=== PATIENT | male | born 1960 | race African-American/Black ===

== ENCOUNTER 2016-12-31 21:12 | Inpatient (IN) | payer BC, OTHER ==
[2016-12-31 21:23] VITALS: BMI 28.1
--- NOTE | 2016-12-31 21:36 | PDOC ---
History of Present Illness - General History Source: Patient Exam Limitations: No Limitations - History of Present Illness Initial Comments: 12/31/16 21:47 The patient is a 56 year old male, with a significant past medical history of HTN, diabetes, s/p kidney transplant and former dyalysis patient (left arm shunt ), who presents to the emergency department with right hand swelling for the past 2 weeks. He states that 2 weeks ago he burned his hand and followed up with his PMD for evaluation but ever since the follow up his hand has been swelling. He was placed on antibiotics at the time. He reports mild pain from the hand, without radiation or modifying factors. The patient denies chest pain, shortness of breath, headache and dizziness. Denies fever, chills, nausea, vomit, diarrhea and constipation. Allergies: Levanox Past surgical history: Kidney transplant (06/[address] [place] [address] Allen) , left arm fistula Social history: Alcohol use. No tobacco or drug use reported PMD - Dr. Charles Rogers <Amandeep Lunsford - Last Filed: 12/31/16 21:47> <Leslye Huitron - Last Filed: 01/01/17 06:32> - General Chief Complaint: Wound Stated Complaint: BURN-REF BY DOCTOR Time Seen by Provider: 12/31/16 21:36 Past History <Amandeep Lunsford - Last Filed: 12/31/16 21:47> - Past Medical History Diabetes: Yes Dialysis: Yes (Shunt lt arm) HIV: Yes - Psycho/Social/Smoking Cessation Hx Anxiety: No Suicidal Ideation: No Smoking History: Never smoked Have you smoked in the past 12 months: No Information on smoking cessation initiated: No Hx Alcohol Use: Yes Drug/Substance Use Hx: No Substance Use Type: None <Leslye Huitron - Last Filed: 01/01/17 06:32> - Past Medical History Allergies/Adverse Reactions: Allergies Allergy/AdvReac Type Severity Reaction Status Date / Time enoxaparin sodium Allergy Severe Hives Verified 12/31/16 21:42 [From Lovenox] garlic AdvReac Verified 12/31/16 21:42 Home Medications: Ambulatory Orders Amlodipine Besylate [Norvasc -] 10 mg PO DAILY 12/31/16 Amoxicillin - [Amoxicillin 500mg Capsule -] 500 mg PO BID 12/31/16 Aspirin [ASA -] 81 mg PO DAILY 12/31/16 Cinacalcet HCl [Sensipar] 30 mg PO DAILY 12/31/16 Furosemide [Lasix] 40 mg PO DAILY 12/31/16 Losartan Potassium [Cozaar -] 25 mg PO DAILY 12/31/16 Metoprolol Tartrate [Lopressor] 100 mg PO BID 12/31/16 Rosuvastatin Calcium [Crestor] 10 mg PO HS 12/31/16 Tacrolimus [Prograf] 5 mg PO BID 12/31/16 Tamsulosin HCl [Flomax] 0.4 mg PO DAILY 12/31/16 Clindamycin [Cleocin -] 300 mg PO Q6HPO #40 capsule 01/01/17 Review of Systems - Review of Systems Able to Perform ROS?: Yes Comments:: 12/31/16 21:49 GENERAL/CONSTITUTIONAL: No fever or chills. No weakness. HEAD, EYES, EARS, NOSE AND THROAT: No change in vision. No ear pain or discharge. No sore throat. CARDIOVASCULAR: No chest pain or shortness of breath RESPIRATORY: No cough, wheezing, or hemoptysis. GASTROINTESTINAL: No nausea, vomiting, diarrhea or constipation. GENITOURINARY: No dysuria, frequency, or change in urination. EXTREMITIES: (+) Right hand swelling. MUSCULOSKELETAL: No joint or muscle swelling or pain. No neck or back pain. SKIN: No rash NEUROLOGIC: No headache, vertigo, loss of consciousness, or change in strength/ sensation. ENDOCRINE: No increased thirst. No abnormal weight change HEMATOLOGIC/LYMPHATIC: No anemia, easy bleeding, or history of blood clots. ALLERGIC/IMMUNOLOGIC: No hives or skin allergy. <Amandeep Lunsford - Last Filed: 12/31/16 21:47> *Physical Exam - Vital Signs Last Vital Signs Temp Pulse Resp BP Pulse Ox 98.5 F 77 18 163/96 100 12/31/16 21:16 12/31/16 21:16 12/31/16 21:16 12/31/16 21:16 12/31/16 21:16 - Physical Exam Comments: 12/31/16 21:49 GENERAL: Awake, alert, and fully oriented, in no acute distress HEAD: No signs of trauma, normocephalic, atraumatic EYES: PERRLA, EOMI, sclera anicteric, conjunctiva clear ENT: Auricles normal inspection, hearing grossly normal, nares patent, oropharynx clear without exudates. Moist mucosa NECK: Normal ROM, supple, no lymphadenopathy, JVD, or masses LUNGS: No distress, speaks full sentences, clear to auscultation bilaterally HEART: Regular rate and rhythm, normal S1 and S2, no murmurs, rubs or gallops, peripheral pulses normal and equal bilaterally. ABDOMEN: Soft, nontender, normoactive bowel sounds. No guarding, no rebound. No masses EXTREMITIES: Normal inspection, Normal range of motion, no edema. No clubbing or cyanosis. NEUROLOGICAL: Cranial nerves II through XII grossly intact. Normal speech, normal gait, no focal sensorimotor deficits SKIN: (+) Right hand swelling with slight erythema. Warm, Dry, normal turgor, no rashes or lesions noted. <Amandeep Lunsford - Last Filed: 12/31/16 21:47> - Vital Signs Last Vital Signs Temp Pulse Resp BP Pulse Ox 98.5 F 77 18 163/96 100 12/31/16 21:16 12/31/16 21:16 12/31/16 21:16 12/31/16 21:16 12/31/16 21:16 <Leslye Huitron - Last Filed: 01/01/17 06:32> ED Treatment Course - LABORATORY CBC & Chemistry Diagram: 12/31/16 22:00 12/31/16 22:00 <Leslye Huitron - Last Filed: 01/01/17 06:32> Medical Decision Making - Medical Decision Making 12/31/16 23:26 I spoke to Eloise at the transplant ctr, [facility], she is the it coordinator ; she confirms that his BUN/Cr are getting worse and she will speak to Dr. Garcia, who is control systems specialist tonight for transplants and she will call me back. 01/01/17 00:[address] Jose owen the transplant ctr, who tells me that BUN and Cr are at his usual level. as of November, BUN and Cr are unchanged. However, I will admit patient, as he has swelling in his dominant right hand and decreased functionality of the hand and exquisite pain with flexion and extension of the 2nd and 3rd fingers. XR demonstrates clear discrete lucencies in the 3rd MCP joint. Pt will require IV abx, and ortho/plastics hand consultation in house before discharging him. 01/01/17 06:31 Patient Name: Jaime Mcdermott THIS IS A PRELIMINARY REPORT FROM [facility] [facility] EXAM: Right hand radiographs. IMAGES: 4 EXAM DATE AND TIME: 2017-01-01 00:14: 47.0 REASON FOR EXAM: .. I. hand swelling. Comment on gas in tissue . COMPARISON: None. FINDINGS: 1. No acute fracture or dislocation. 2. Prominent dorsal soft tissue swelling. 3. No gross radiographic evidence for soft tissue gas. 4. Nonspecific lucencies of the third metacarpal head and tiny lucency at the base of the third proximal phalanx, likely chronic. THIS DOCUMENT HAS BEEN ELECTRONICALLY SIGNED <Leslye Huitron - Last Filed: 01/01/17 06:32> *DC/Admit/Observation/Transfer - Attestations Scribe Attestion: 12/31/16 21:49 Documentation prepared by Amandeep Lunsford, acting as medical record clerk for Leslye Huitron MD <Amandeep Lunsford - Last Filed: 12/31/16 21:47> - Discharge Dispostion Admit: Yes <Leslye Huitron - Last Filed: 01/01/17 06:32> Diagnosis at time of Disposition: Cellulitis, Hand swelling, Bony abnormality, Kidney transplant recipient - Prescriptions - Referrals
[2016-12-31] MEDS ORDERED: CLINDAMYCIN 600MG PREMIX IVPB 50 ML IVPB ONE ×2 (21:50→22:10)
[2016-12-31] MEDS ORDERED: DIPHTH,PERTUSS(ACELL),TET VAC 0.5 ML VIAL IM ONE (21:50)
[2016-12-31 22:16] LABS: BASOPHIL 0.8 % (0-2.0); EOSINOPHIL 2.3 % (0-4.5); MCH 28.4 pg (25.7-33.7); MCHC 32.2 g/dl (32.0-35.9); MEAN CELL VOLUME 88.1 fl (80-96); MEAN PLT VOLUME 8.7 fl (7.5-11.1); NEUTROPHILS 71.1 % (42.8-82.8); PLATELET COUNT 102 K/MM3 (134-434); RDW 17.4 % (11.9-15.9); WHITE BLOOD COUNT 3.8 K/mm3 (4.0-10.0)
[2016-12-31 22:45] LABS: ALBUMIN 3.1 g/dl (3.4-5.0); ANION GAP 10 (8-16); CALCIUM 8.9 mg/dL (8.5-10.1); CO2 21 mmol/L (21-32); CREATININE 4.2 mg/dL (0.7-1.3); GLUCOSE,RANDOM 210 mg/dL (74-106); SGOT/AST 22 U/L (15-37); SGPT/ALT 17 U/L (12-78)
[2016-12-31 22:46] LABS: ALK PHOS 79 U/L (45-117); BILIRUBIN,TOTAL 0.4 mg/dL (0.2-1.0)
[2017-01-01] MEDS ORDERED: OXYCODONE/APAP 5/325MG COMBO TABLET PO PRN (01:35)
[2017-01-01] MEDS ORDERED: TAMSULOSIN HCL 0.4 MG CAP.ER.24H (FP) PO ONE (01:37)
[2017-01-01] MEDS ORDERED: METOPROLOL TARTRATE 50 MG TABLET (FP) PO ONE (01:37)
[2017-01-01] MEDS ORDERED: ACETAMINOPHEN 325 MG TABLET (FP) PO PRN (01:42)
[2017-01-01] MEDS ORDERED: oxyCODONE HCL 5 MG TABLET PO PRN (01:42)
--- NOTE | 2017-01-01 01:46 | HP ---
CHIEF COMPLAINT: R hand burn PCP: Dr. Ken Soto HISTORY OF PRESENT ILLNESS: 56 y/o M w/PMH of kidney transplant (2008), HTN, HLD presents to ER after burning his R hand approximately 12 days ago. He burned his R hand while cooking when he was putting fish in a koo of oil and splash-back of oil burned his R hand over his R 4th and 5th digit. He saw his PCP who gave him amoxicillin 500 mg bid which he was compliant with but noticed swelling around his fingers over the last 12 days and noticed his whole R hand swollen today which prompted him to come to the ER. He states his sensation is intact and pain is located mainly along his 3rd digit starting from MCP down to his DIP. He does not have pain on 4th or 5th digit. He is unable to spread fingers or make a fist with his R hand. He is R hand dominant. He denies getting troy anywhere else and denies fevers and chills. ER course was notable for: (1) clindamycin, R hand xr, (2) (3) PAST MEDICAL HISTORY:kidney transplant (2008), HTN, HLD PAST SURGICAL HISTORY: renal transplant 2008 Family History: non-contributory Allergies enoxaparin sodium [From Lovenox] Allergy (Severe, Verified 12/31/16 21:42) Hives garlic Adverse Reaction (Verified 12/31/16 21:42) HOME MEDICATIONS: Home Medications Medication Instructions Recorded Amlodipine Besylate [Norvasc -] 10 mg PO DAILY 12/31/16 Amoxicillin - [Amoxicillin 500mg 500 mg PO BID 12/31/16 Capsule -] Aspirin [ASA -] 81 mg PO DAILY 12/31/16 Cinacalcet HCl [Sensipar] 30 mg PO DAILY 12/31/16 Furosemide [Lasix] 40 mg PO DAILY 12/31/16 Losartan Potassium [Cozaar -] 25 mg PO DAILY 12/31/16 Metoprolol Tartrate [Lopressor] 100 mg PO BID 12/31/16 Rosuvastatin Calcium [Crestor] 10 mg PO HS 12/31/16 Tacrolimus [Prograf] 5 mg PO BID 12/31/16 Tamsulosin HCl [Flomax] 0.4 mg PO DAILY 12/31/16 Clindamycin [Cleocin -] 300 mg PO Q6HPO #40 capsule 01/01/17 REVIEW OF SYSTEMS CONSTITUTIONAL: Absent: fever, chills CARDIOVASCULAR: Absent: chest pain RESPIRATORY: Absent: shortness of breath MUSCULOSKELETAL: +decreased ROM of R hand digits SKIN: +R hand troy at 4th and 5th digit NEUROLOGIC: Absent: paresthesias PHYSICAL EXAMINATION Vital Signs - 24 hr 12/31/16 21:16 Temperature 98.5 F Pulse Rate 77 Respiratory 18 Rate Blood Pressure 163/96 O2 Sat by Pulse 100 Oximetry (%) GENERAL: Awake, alert, and fully oriented, in no acute distress. HEAD: Normal with no signs of trauma. EYES:extraocular movements intact, sclera anicteric, conjunctiva clear. EARS, NOSE, THROAT: Ears normal, nares patent NECK: Normal range of motion, supple LUNGS: Breath sounds equal, clear to auscultation bilaterally. No wheezes, and no crackles. No accessory muscle use. HEART: Regular rate and rhythm, normal S1 and S2 without murmur, rub or gallop. ABDOMEN: Soft, nontender, not distended, normoactive bowel sounds EXTREMITIES: 2+ pulses, warm, well-perfused. No calf tenderness. Radial pulses 2 + and equal. Decreased ROM of all digits. Thumb opposition intact. NEUROLOGICAL: Normal speech. Gait not observed. Sensation to light touch preserved in R hand and digits. SKIN: Warm, dry. Skin blistering on 5th digit. Laboratory Results - last 24 hr 12/31/16 12/31/16 12/31/16 22:00 22:00 22:00 WBC 3.8 L RBC 3.27 L Hgb 9.3 L Hct 28.8 L MCV 88.1 MCHC 32.2 RDW 17.4 H Plt Count 102 L MPV 8.7 Neutrophils % 71.1 Lymphocytes % 16.7 Monocytes % 9.1 Eosinophils % 2.3 Basophils % 0.8 ESR 55 H Sodium Potassium Chloride Carbon Dioxide Anion Gap BUN Creatinine Creat Clearance w eGFR Random Glucose Calcium Total Bilirubin AST ALT Alkaline Phosphatase C-Reactive Protein 2.8 H Total Protein Albumin 12/31/16 22:00 WBC RBC Hgb Hct MCV MCHC RDW Plt Count MPV Neutrophils % Lymphocytes % Monocytes % Eosinophils % Basophils % ESR Sodium 138 Potassium 3.8 Chloride 107 Carbon Dioxide 21 Anion Gap 10 BUN 58 H Creatinine 4.2 H Creat Clearance w eGFR 14.86 Random Glucose 210 H Calcium 8.9 Total Bilirubin 0.4 AST 22 ALT 17 Alkaline Phosphatase 79 C-Reactive Protein Total Protein 6.0 L Albumin 3.1 L Imaging: Hand XR: prelim read: FINDINGS: 1. No acute fracture or dislocation. 2. Prominent dorsal soft tissue swelling. 3. No gross radiographic evidence for soft tissue gas. 4. Nonspecific lucencies of the third metacarpal head and tiny lucency at the base of the third proximal phalanx, likely chronic. THIS DOCUMENT HAS BEEN ELECTRONICALLY SIGNED [place] M.D Active Medications Acetaminophen (Tylenol -) 325 mg PO Q6H PRN PRN Reason: PAIN Last Admin: 01/01/17 02:06 Dose: 325 mg Amlodipine Besylate (Norvasc -) 10 mg PO DAILY [facility] Aspirin (Asa -) 81 mg PO DAILY [facility] Cinacalcet (Sensipar -) 30 mg PO DAILY [facility] Furosemide (Lasix -) 40 mg PO DAILY [facility] Clindamycin Phosphate (Cleocin 600 Mg Premix Ivpb -) 50 mls @ 100 mls/hr IVPB Q6H-IV [facility] Last Admin: 01/01/17 03:00 Dose: 100 mls/hr Losartan Potassium (Cozaar -) 25 mg PO DAILY [facility] Metoprolol Tartrate (Lopressor -) 100 mg PO BID [facility] Last Admin: 01/01/17 02:07 Dose: 100 mg Oxycodone HCl (Roxicodone -) 5 mg PO Q6H PRN PRN Reason: PAIN Last Admin: 01/01/17 02:06 Dose: 5 mg Rosuvastatin Calcium (Crestor -) 10 mg PO HS [facility] Last Admin: 01/01/17 02:07 Dose: 10 mg Tacrolimus (Prograf (Non Formulary)) 5 mg PO BID [facility] Last Admin: 01/01/17 02:07 Dose: 5 mg Tamsulosin HCl (Flomax -) 0.4 mg PO [facility] ASSESSMENT/PLAN: 56 y/o M w/PMH of kidney transplant (2008), HTN, HLD presents to ER after burning his R hand approximately 12 days ago. -R hand swelling w/pain over 3rd digit s/p oil burn -R hand xr shows: Nonspecific lucencies of the third metacarpal head and tiny lucency at the base of the third proximal phalanx, likely chronic -f/u official read -clindamycin 600 mg iv q6h -ESR and CRP are elevated -oxycodone/tylenol 5/325 q6h prn for pain -Ortho/hand consulted (Dr. Matias) -s/p renal transplant -c/w tacrolimus 5 mg po bid, lasix 40 mg po qd, cincalet 40 mg po qd -his Cr is at baseline according to ER notes (who contact his transplant team ) -DM -pt states he is not on any meds. He was stopped on diabetes meds approximately 1.5 years ago and he states his A1C has been tracked and his PCP was satisified with A1C with diet control and is still not on any meds. -Will place on ISS here -HTN -norvasc 10 mg po qd, cozaar 25 mg po qd, lopressor 100 mg po bid -CAD -c/w asa 81 mg po qd, rosuvastatin 10 mg po qhs -BPH -c/w flomax 0.4 mg po qhs -DVT ppx -ambulation -FEN -no fluids at this time -monitor electrolytes -Diabetic/renal diet -Dispo -admit to M/S Visit type - Emergency Visit Emergency Visit: Yes ED Registration Date: 01/01/17 Care time: The patient presented to the Emergency Department on the above date and was hospitalized for further evaluation of their emergent condition. - New Patient This patient is new to me today: Yes Date on this admission: 01/01/17 - Critical Care Critical Care patient: No
[2017-01-01] MEDS ORDERED: OXYCODONE/APAP 5/325MG COMBO TABLET ONE (01:50)
[2017-01-01] MEDS ORDERED: METOPROLOL TARTRATE 50 MG TABLET (FP) ONE (01:51)
[2017-01-01] MEDS ORDERED: TAMSULOSIN HCL 0.4 MG CAP.ER.24H (FP) ONE (01:51)
--- NOTE | 2017-01-01 01:51 | PN ---
Teaching Attending Note Name of Resident: Yosi Scott ATTENDING PHYSICIAN STATEMENT I saw and evaluated the patient. I reviewed the resident's note and discussed the case with the resident. I agree with the resident's findings and plan as documented. SUBJECTIVE:56yo M c/o R hand pain. states that 2 weeks ago he was koo-frying salmon when oil splashed on his hand. he ran his hand under cold water and applied ice at the time. subsequently the hand progressively swelled and became difficult to move the fingers. he saw his PMD last week who prescribed amoxicillin 500mg BID x7days which he completed today. states that he is unable to move the middle finger at this time and has extreme point tenderness over the middle MCP joint. pain improves with motrin. denies CP, SOB,fever, chills, drainage from wound. denies any other trauma to the hand. pt is R hand dominate. OBJECTIVE: Last Vital Signs Temp Pulse Resp BP Pulse Ox 98.5 F 77 18 163/96 100 12/31/16 21:16 12/31/16 21:16 12/31/16 21:16 12/31/16 21:16 12/31/16 21:16 General NAD CV S1 S2+ Extremities R hand swelling limited from palm to fingers. point tenderness over MCP joint. unable to lay flat. unable to touch 1st and 5th digit. unroofed blister of the 4th and 5th digit with no drainage. pulse intact. sensation intact. ROM of digits limited to swelling/pain. +pronation/supination without difficulty ASSESSMENT AND PLAN: 56yo M wtih PMH DM, HTN, CKD s/p renal transplant presented to the ER with R hand swelling and pain 1. R hand swelling and pain- medicine admission. concern for cellulitis vs OM vs gout of the hand. ESR/CRP elevated. XR obtained and awaiting official read. cont clindamycin 600mg Q6H, percocet prn pain. hand consult to evaluate 2. DM- diabetic diet. diet controlled. confirm does not take medications. iss, bgm 3. HTN- elevated. likely due to pain. re-start home medications 4. CKD s/p renal transplant 2013- cont tacrolimus, cinacalcet. ER physician confirm kidney function with renal transplant physician at [facility] and baseline Cr 4.2 5. DVT ppx- EAM
[2017-01-01] MEDS ORDERED: TAMSULOSIN HCL 0.4 MG CAP.ER.24H (FP) PO SCH ×2 (02:00→22:00)
[2017-01-01] MEDS ORDERED: ROSUVASTATIN CA 10 MG TABLET (FP) PO SCH (02:00)
[2017-01-01] MEDS: TACROLIMUS ANHYDROUS 5 MG CAPSULE (NF) PO SCH ×2 (02:07→09:43)
[2017-01-01] MEDS: METOPROLOL TARTRATE 50 MG TABLET (FP) PO SCH ×2 (02:07→09:42)
[2017-01-01] MEDS ORDERED: CLINDAMYCIN 600MG PREMIX IVPB 50 ML IVPB ONE (02:27)
[2017-01-01] MEDS: CLINDAMYCIN 600MG PREMIX IVPB 50 ML IVPB SCH ×3 (03:00→14:48)
[2017-01-01] MEDS: INSULIN SLIDING SCALE (NOVOLOG) 1 VIAL SQ SCH ×2 (06:19→11:25)
[2017-01-01 09:01] LABS: MCH 28.7 pg (25.7-33.7); MCHC 32.5 g/dl (32.0-35.9); MEAN CELL VOLUME 88.4 fl (80-96); MEAN PLT VOLUME 8.8 fl (7.5-11.1); PLATELET COUNT 81 K/MM3 (134-434); RDW 16.9 % (11.9-15.9); WHITE BLOOD COUNT 2.7 K/mm3 (4.0-10.0)
[2017-01-01] MEDS ORDERED: PT OWN MED DRAWER 7, Y5N ONE (09:41)
[2017-01-01] MEDS ORDERED: LOSARTAN POTASSIUM 25 MG TABLET PO SCH (10:00)
[2017-01-01] MEDS ORDERED: CINACALCET HCL 30 MG TAB (FP) PO SCH (10:00)
[2017-01-01] MEDS ORDERED: amLODIPine BESYLATE 10 MG TABLET (FP) PO SCH (10:00)
[2017-01-01] MEDS ORDERED: FUROSEMIDE 40 MG TABLET (FP) PO SCH (10:00)
[2017-01-01] MEDS ORDERED: ASPIRIN 81 MG CHEWABLE TABLETS PO SCH (10:00)
[2017-01-01 13:00] LABS: ANION GAP 11 (8-16); CALCIUM 8.7 mg/dL (8.5-10.1); CO2 22 mmol/L (21-32); GLUCOSE,RANDOM 140 mg/dL (74-106)
[2017-01-01] MEDS ORDERED: COLCHICINE 0.6 MG TABLET (FP) PO STA (14:15)
--- NOTE | 2017-01-01 14:21 | HOSP ---
Subjective - Review of Symptoms Subjective: went to re-evaluate the pt. hand pain has improved slightly. swelling improved. mobility improved but can still not make a closed fist. pt states he has 2 gout flares in the past that resolved with colchicine, last attack >5 years ago pt does not want to stay and wait for plastic eval. discussed with risks and benefits of staying not limited to infection causing worsening kidney function as well as loss of functionality of hand. verbalized understanding of risks. willing to stay for next dosing of IV clindamycin prior to leaving to get 24H worth of antibiotics then agreeable to taking abx at home and will call plastic surgeon on Tuesday for appointment. will give colchicine dose x1 Physical Examination Vital Signs: Vital Signs Temperature 97.3 F L 01/01/17 06:00 Pulse Rate 67 01/01/17 06:00 Respiratory Rate 18 01/01/17 09:00 Blood Pressure 141/82 01/01/17 06:00 O2 Sat by Pulse Oximetry (%) 99 01/01/17 09:00 Labs: CBC, BMP 01/01/17 07:45 01/01/17 07:45
[2017-01-01 15:53] VITALS: BP 139/74; PULSE 68; TEMP 97.7
--- NOTE | 2017-01-02 07:13 | DS ---
Physical Exam: SUBJECTIVE: Patient seen and examined. pain in hand improved. swelling slightly improved. improved mobility. denies CP, SOB,fever, chills, N/V/C/D OBJECTIVE: Vital Signs Period Temp Pulse Resp BP Sys/Carr Pulse Ox Last 24 Hr 97.7 F 68 18-18 139/74 99 PHYSICAL EXAM GENERAL: The patient is awake, alert, and fully oriented, in no acute distress. HEAD: Normal with no signs of trauma. EYES: PERRL, extraocular movements intact, sclera anicteric, conjunctiva clear. ENT: Ears normal, nares patent, oropharynx clear without exudates, moist mucous membranes. NECK: Trachea midline, full range of motion, supple. LUNGS: Breath sounds equal, clear to auscultation bilaterally, no wheezes, no crackles, no accessory muscle use. HEART: Regular rate and rhythm, S1, S2 without murmur, rub or gallop. ABDOMEN: Soft, nontender, nondistended, normoactive bowel sounds, no guarding, no rebound, no hepatosplenomegaly, no masses. EXTREMITIES: 2+ pulses, warm, well-perfused, no edema. NEUROLOGICAL: Cranial nerves II through XII grossly intact. Normal speech, gait not observed. PSYCH: Normal mood, normal affect. SKIN: Warm, dry, normal turgor, no rashes or lesions noted. LABS Laboratory Results - last 24 hr 01/01/17 01/01/17 01/01/17 07:45 07:45 11:19 WBC 2.7 L RBC 3.14 L Hgb 9.0 L Hct 27.8 L MCV 88.4 MCHC 32.5 RDW 16.9 H Plt Count 81 L D MPV 8.8 Sodium 142 Potassium 4.0 Chloride 109 H Carbon Dioxide 22 Anion Gap 11 BUN 49 H Creatinine 4.0 H POC Glucometer 170 Random Glucose 140 H D Calcium 8.7 HOSPITAL COURSE: Date of Admission:01/01/17 Date of Discharge: 01/02/17 Admitting Diagnosis: R hand swelling Pre hospital course 56yo M c/o R hand pain. states that 2 weeks ago he was koo-frying salmon when oil splashed on his hand. he ran his hand under cold water and applied ice at the time. subsequently the hand progressively swelled and became difficult to move the fingers. he saw his PMD last week who prescribed amoxicillin 500mg BID x7days which he completed today. states that he is unable to move the middle finger at this time and has extreme point tenderness over the middle MCP joint. pain improves with motrin. denies CP, SOB,fever, chills, drainage from wound. denies any other trauma to the hand. pt is R hand dominate. Subsequent hospital course Admitted to medicine. started on clindamycin. plastics consulted. pain control. mild improvement after 3 doses of clindamycin. xr done with some lesion noted on 3rd digit MCP. colchicine x1 given with some relief. pt did not want to wait for plastics if there was no guarentee he was coming in today. risks and benefits discussed. verbalized understanding. agreeing to continue clindamyin po and call plastics on tuesday. signed out AMA Minutes to complete discharge: 40 Discharge Summary Reason For Visit: CELLULITIS , HAND SWELLING BONY ABDOMINAL Condition: Guarded - Instructions Diet, Activity, Other Instructions: You were admitted due to the swelling in your hand and the concern for bone involvement. it is important to follow up with plastics on tuesday. You may loose functionality of your hand if your swelling is not addressed and improved. there is possibility of infection spreading to the bone. Take antibiotic until completed even if your symptoms improve follow up with your primary doctor this week if your swelling worsens, loose more mobility of your hand or if you develop fever (temp > 101) return to the ER. Referrals: Ana Wilson MD [Primary Care Provider] - Alexis Hooper MD [Staff Physician] - (PLastic surgeon. call TUESDAY FOR APPT) Disposition: AGAINST MEDICAL ADVICE - Home Medications Comprehensive Discharge Medication List: Ambulatory Orders Amlodipine Besylate [Norvasc -] 10 mg PO DAILY 12/31/16 Aspirin [ASA -] 81 mg PO DAILY 12/31/16 Cinacalcet HCl [Sensipar] 30 mg PO DAILY 12/31/16 Furosemide [Lasix] 40 mg PO DAILY 12/31/16 Losartan Potassium [Cozaar -] 25 mg PO DAILY 12/31/16 Metoprolol Tartrate [Lopressor] 100 mg PO BID 12/31/16 Rosuvastatin Calcium [Crestor] 10 mg PO HS 12/31/16 Tacrolimus [Prograf] 5 mg PO BID 12/31/16 Tamsulosin HCl [Flomax] 0.4 mg PO DAILY 12/31/16 Clindamycin [Cleocin -] 300 mg PO Q6HPO #40 capsule 01/01/17 This patient is new to me today: Yes Date on this admission: 01/01/17 Emergency Visit: Yes ED Registration Date: 01/01/17 Care time: The patient presented to the Emergency Department on the above date and was hospitalized for further evaluation of their emergent condition. Critical Care patient: No - Discharge Referral Referred to [facility] Yes Physician Referral: Ana Wilson MD ([facility] Med)
== END 2017-01-01 15:55 | disposition left against medical advice (07) | DRG 603 ==
LOC: JER 21:12 → JERBED 01-01 01:41 → J6S 01-01 02:35
PROVIDERS: ADMIT Internal Medicine; ATTEND Internal Medicine
DX: L03.113 Cellulitis of right upper limb (principal); Z94.0 Kidney transplant status; I10 Essential (primary) hypertension; E11.9 Type 2 diabetes mellitus without complications; X10.2XXD Contact with fats and cooking oils, subsequent encounter
CPT/HCPCS: 36415; 73130-TC-RT; 80048; 80053; 85025; 85027; 85651; 86140; 87040; 99285-25

== ENCOUNTER 2018-07-15 08:10 | Inpatient (IN) | payer BC, OTHER ==
--- NOTE | 2018-07-15 09:17 | PDOC ---
History of Present Illness - General Chief Complaint: Chest Pain Stated Complaint: CHEST PAIN Time Seen by Provider: 07/15/18 09:05 History Source: Patient Exam Limitations: No Limitations - History of Present Illness Initial Comments: 57 yo M history HTN, renal transplant approx 10 years ago (currently at ~20% function), DM presents with chest pain since last night. He has been treated for recent back pain with meloxicam and tramadol. Chest pain is associated with SOB since this morning. CP is substernal, tight, 5/10, constant. Worse with lying down. SOB improves with sitting up. +Nausea, vomited x2 last night. Past History - Past Medical History Allergies/Adverse Reactions: Allergies Allergy/AdvReac Type Severity Reaction Status Date / Time enoxaparin sodium Allergy Severe Hives Verified 07/15/18 08:19 [From Lovenox] garlic AdvReac Verified 07/15/18 08:19 Home Medications: Ambulatory Orders Amlodipine Besylate [Norvasc -] 10 mg PO DAILY 12/31/16 Aspirin [ASA -] 81 mg PO DAILY 12/31/16 Cinacalcet HCl [Sensipar] 30 mg PO DAILY 12/31/16 Furosemide [Lasix] 40 mg PO DAILY 12/31/16 Metoprolol Tartrate [Lopressor] 100 mg PO BID 12/31/16 Rosuvastatin Calcium [Crestor] 10 mg PO HS 12/31/16 Tacrolimus [Prograf] 4 mg PO BID 12/31/16 Tamsulosin HCl [Flomax] 0.4 mg PO DAILY 12/31/16 Allopurinol 300 mg PO DAILY 07/15/18 Hydralazine HCl 25 mg PO DAILY 07/15/18 COPD: No Diabetes: Yes Dialysis: Yes (AV Fistula to LLA) HTN: Yes Hypercholesterolemia: Yes Thyroid Disease: No - Suicide/Smoking/Psychosocial Hx Smoking History: Never smoked Have you smoked in the past 12 months: No Information on smoking cessation initiated: No Hx Alcohol Use: No Drug/Substance Use Hx: No Substance Use Type: None Hx Substance Use Treatment: No Review of Systems - Review of Systems Able to Perform ROS?: Yes Comments:: GENERAL/CONSTITUTIONAL: No fever or chills. No weakness. HEAD, EYES, EARS, NOSE AND THROAT: No change in vision. No ear pain or discharge. No sore throat. CARDIOVASCULAR: +Chest pain, +shortness of breath. RESPIRATORY: No cough, wheezing, or hemoptysis. GASTROINTESTINAL: No nausea, vomiting, diarrhea or constipation. GENITOURINARY: No dysuria, frequency, or change in urination. MUSCULOSKELETAL: No joint or muscle swelling or pain. No neck pain. +Back pain. SKIN: No rash. NEUROLOGIC: No headache, vertigo, loss of consciousness, or change in strength/ sensation. ENDOCRINE: No increased thirst. No abnormal weight change. HEMATOLOGIC/LYMPHATIC: No anemia, easy bleeding, or history of blood clots. ALLERGIC/IMMUNOLOGIC: No hives or skin allergy. *Physical Exam - Vital Signs Last Vital Signs Temp Pulse Resp BP Pulse Ox 67 18 155/82 98 07/15/18 08:19 07/15/18 08:19 07/15/18 08:19 07/15/18 08:19 - Physical Exam Comments: GENERAL: Awake, alert, and fully oriented. Appears pale, somewhat somnolent. HEAD: No signs of trauma EYES: PERRLA, EOMI, sclera anicteric, conjunctiva clear ENT: Auricles normal inspection, hearing grossly normal, nares patent, oropharynx clear without exudates. Dry mucosa NECK: Normal ROM, supple, no lymphadenopathy, JVD, or masses LUNGS: Breath sounds equal, clear to auscultation bilaterally. +Crackles at bases B/L. HEART: Regular rate and rhythm, normal S1 and S2, no murmurs, rubs or gallops ABDOMEN: Soft, nontender, normoactive bowel sounds. No guarding, no rebound. No masses EXTREMITIES: L forearm with AVF +thrill. Normal range of motion, 2+ pitting edema B/L feet and ankles. No clubbing or cyanosis. No cords, erythema, or tenderness NEUROLOGICAL: Cranial nerves II through XII grossly intact. Normal speech. Motor and sensation intact SKIN: Warm, Dry, normal turgor, no rashes or lesions noted. Moderate Sedation - Procedure Monitoring Vital Signs: Procedure Monitoring Vital Signs Temperature Pulse Rate 67 07/15/18 08:19 Respiratory Rate 18 07/15/18 08:19 Blood Pressure 155/82 07/15/18 08:19 O2 Sat by Pulse Oximetry (%) 98 07/15/18 08:19 ED Treatment Course - LABORATORY CBC & Chemistry Diagram: 07/15/18 09:20 07/15/18 09:20 - RADIOLOGY Radiology Studies Ordered: Category Date Time Status CHEST X-RAY PORTABLE* [RAD] Stat Radiology 07/15/18 09:06 Ordered Medical Decision Making - Critical Care Time Total Critical Care Time (minutes): 45 Critical Care Statement: The care of this patient involved high complexity decision making to prevent further life threatening deterioration of the patient 's condition and/or to evaluate & treat vital organ system(s) failure or risk of failure. - Medical Decision Making 07/15/18 09:55 Pt with recent back pain, taking NSAIDs, now with cp. Appears ill, pale on initial ED evaluation. Suspicion is high for dissection. Pt with history of renal transplant, hence I called the transplant center at [facility] (where the transplant was done by Dr. Allen approx 10 years ago). They stated that his last creatinine was approximately 7, he is going to have to start back on dialysis very soon. He has history of poor adherence to regimen and medical appointments. I discussed his case and my concern for poss dissection, they recommended that I proceed with CTA, and specified that he may need dialysis. I will contact his release coordinator as well. DDx also includes CHF, renal failure with fluid overload, ACS. 07/15/18 10:50 Case d/w Dr. Perry. Patient with potassium 5.3, creatinine now 9.8, and he desats with exertion. She stated that he likely needs to go back on dialysis. I have discussed with patient, he is amenable. I also received a call from radiology- CTA neg for dissection, but patient was found to have pericardial effusion. Will d/w CT surg. 07/15/18 11:06 Case d/w Dr. Perry again, will evaluate patient. I have microblogged the hospitalist for admission. I also discussed with Dr. Huitron of thoracic surgery , who stated that they drain chronic pericardial effusions, not acute. 07/15/18 11:43 Dr. Perry at bedside to prep for dialysis. *DC/Admit/Observation/Transfer Diagnosis at time of Disposition: Kidney transplant recipient, Pericardial effusion Acute on chronic renal failure Qualifiers: Acute renal failure type: unspecified Chronic kidney disease stage: unspecified stage Qualified Code(s): N17.9 - Acute kidney failure, unspecified Fluid overload Qualifiers: Hypervolemia type: other Qualified Code(s): E87.79 - Other fluid overload Chest pain Qualifiers: Chest pain type: unspecified Qualified Code(s): R07.9 - Chest pain, unspecified - Discharge Dispostion Condition at time of disposition: Guarded Decision to Admit order: Yes - Referrals - Patient Instructions - Post Discharge Activity
[2018-07-15 09:32] LABS: BASO % 0.3 % (0-2.0); EOS % 1.2 % (0-4.5); HEMATOCRIT 27.6 % (35.4-49); HEMOGLOBIN 9.1 GM/dL (11.7-16.9); LYMPH % 16.1 % (8-40); MCH 28.9 pg (25.7-33.7); MEAN CELL VOLUME 87.4 fl (80-96); MEAN PLT VOLUME 8.4 fl (7.5-11.1); MONO % 7.4 % (3.8-10.2); PLATELET COUNT 118 K/MM3 (134-434); RBC 3.16 M/mm3 (4.00-5.60); RDW 21.5 % (11.9-15.9); WHITE BLOOD COUNT 5.6 K/mm3 (4.0-10.0)
[2018-07-15 10:15] LABS: ALBUMIN 3.2 g/dl (3.4-5.0); CO2 16 mmol/L (21-32)
[2018-07-15 10:18] LABS: CREATININE 9.8 mg/dL (0.55-1.3)
[2018-07-15] MEDS ORDERED: ONDANSETRON 4 MG/2 ML VIAL IVPUSH ONE (10:23)
[2018-07-15 10:28] LABS: INR 1.12 (0.83-1.09); PROTHROMBIN TIME (PATIENT) 13.2 SEC (9.7-13.0)
[2018-07-15] MEDS ORDERED: ONDANSETRON 4 MG/2 ML VIAL ONE (10:33)
[2018-07-15 10:41] LABS: ALK PHOS 239 U/L (45-117); ANION GAP 11 MMOL/L (8-16); BILIRUBIN,TOTAL 0.6 mg/dL (0.2-1); BLOOD UREA NITROGEN 78 mg/dL (7-18); CALCIUM 8.5 mg/dL (8.5-10.1); CHLORIDE 114 mmol/L (98-107); GLUCOSE,RANDOM 116 mg/dL (74-106); LIPASE 238 U/L (73-393); N-TERMINAL BNP 15752.3 pg/ml (5-125); POTASSIUM 5.3 mmol/L (3.5-5.1); SGOT/AST 34 U/L (15-37); SGPT/ALT 30 U/L (13-61); SODIUM 141 mmol/L (136-145); TOT PROT 6.3 g/dl (6.4-8.2)
[2018-07-15 11:12] LABS: ANISOCYTOSIS 0; MACROCYTOSIS 0; PLATELET ESTIMATE DECREASED
--- NOTE | 2018-07-15 11:56 | CON.NEP ---
Consult Consult Specialty:: Nephrology Reason for Consultation:: Uremic - History of Present Illness Chief Complaint: 57 ESRD HTN DM WAS ON HD FOR 7 YEARS TILL 2009 GOT A [facility] TXP LASTED 10 YEARS NOW CR 9 DECREASED APPETITE. LOST FLESH WEIGHT. 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 Home Medications - Allergies Allergies/Adverse Reactions: Allergies Allergy/AdvReac Type Severity Reaction Status Date / Time enoxaparin sodium Allergy Severe Hives Verified 07/15/18 08:19 [From Lovenox] garlic AdvReac Verified 07/15/18 08:19 - Home Medications Home Medications: Ambulatory Orders Amlodipine Besylate [Norvasc -] 10 mg PO DAILY 12/31/16 Aspirin [ASA -] 81 mg PO DAILY 12/31/16 Cinacalcet HCl [Sensipar] 30 mg PO DAILY 12/31/16 Furosemide [Lasix] 40 mg PO DAILY 12/31/16 Metoprolol Tartrate [Lopressor] 100 mg PO BID 12/31/16 Rosuvastatin Calcium [Crestor] 10 mg PO HS 12/31/16 Tacrolimus [Prograf] 4 mg PO BID 12/31/16 Tamsulosin HCl [Flomax] 0.4 mg PO DAILY 12/31/16 Allopurinol 300 mg PO DAILY 07/15/18 Hydralazine HCl 25 mg PO DAILY 07/15/18 Review of Systems - Review of Systems Constitutional: reports: Unintentional Wgt. Loss Cardiovascular: reports: Shortness of Breath Nephrology Consult - Height Height: 5 ft 10 in - Weight Weight: 185 lb - BMI Body Mass Index (BMI): 26.5 - Lab Results CBC,BMP: CBC, BMP 07/15/18 09:20 07/15/18 09:20 Anion Gap: Anion Gap Anion Gap 11 MMOL/L (8-16) 07/15/18 09:20 - Imaging Chest X-ray: Image Reviewed Cat Scan: Report Reviewed - Physical Examination Vital Signs: Vital Signs Temperature Pulse Rate 73 07/15/18 09:39 Respiratory Rate 18 07/15/18 09:39 Blood Pressure 164/83 07/15/18 09:39 O2 Sat by Pulse Oximetry (%) 100 07/15/18 09:39 Constitutional: Yes: Cachectic Respiratory: Yes: Rales Gastrointestinal: Yes: Soft Access for Hemodialysis: AV Fistula Edema: Yes Assessment/Plan 57 WITH HTN ESRD ONHD 7 YEARS GOT A TXP 2008 NOW UREMIC FAILED ALLOGRAFT NEEDS HD NAUSEA VOMITING PERHAPS UREMIC EFFUSION RALES WEIGHT LOSS CASE D/W HIMAND NEEDS TO START HD BACK ON THE TXP LIST AT [facility] RESUME BP MEDS BUT DOSE POST HD TAPER PROGRAF TO 3 BID HD TODAY 2.5 HR K2 CA2.5 TARGET 1.5 KG BFR 250 REPEAT HD MON ARRANGE OUT PT HD AT [facility] CASE D/W ADMITTING DOC
[2018-07-15] MEDS ORDERED: ONDANSETRON 4 MG/2 ML VIAL IVPUSH PRN (12:07)
--- NOTE | 2018-07-15 12:11 | HP ---
Admitting History and Physical - Primary Care Physician PCP: Ana Wilson - Admission Chief Complaint: My body just gave out History of Present Illness: Mr Mcdermott is a 57 year old male who comes in with difficulty breathing. He says 2 weeks ago he was at the store and picked something up, and because of that he developed lower back pain. He saw his PCP and was placed on mobic, however the pain did not improve. Because of this he was started on tramadol. He says he took the tramadol last night and developed shortness of breath. He felt short of breath at rest and it worsened with exertion and lying flat. He had a cough associated with it that was non-productive but at times was so severe it causes vomiting. He said he had chest pain with the coughing as well. Because the shortness of breath was so severe he presented to the ED. He currently still feels short of breath but the pain is controlled. He denies fevers, chills, lightheadedness, dizziness, passing out, nausea, diarrhea, constipation, difficulty or pain on urination (he still makes urine), or worsening swelling ( he has minimal chronic swelling). 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 , 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 History of Recent Travel: No Home Medications - Allergies Allergies/Adverse Reactions: Allergies Allergy/AdvReac Type Severity Reaction Status Date / Time enoxaparin sodium Allergy Severe Hives Verified 07/15/18 08:19 [From Lovenox] garlic AdvReac Verified 07/15/18 08:19 - Home Medications Home Medications: Ambulatory Orders Amlodipine Besylate [Norvasc -] 10 mg PO DAILY 12/31/16 Aspirin [ASA -] 81 mg PO DAILY 12/31/16 Cinacalcet HCl [Sensipar] 30 mg PO DAILY 12/31/16 Furosemide [Lasix] 40 mg PO DAILY 12/31/16 Metoprolol Tartrate [Lopressor] 100 mg PO BID 12/31/16 Rosuvastatin Calcium [Crestor] 10 mg PO HS 12/31/16 Tacrolimus [Prograf] 4 mg PO BID 12/31/16 Tamsulosin HCl [Flomax] 0.4 mg PO DAILY 12/31/16 Allopurinol 300 mg PO DAILY 07/15/18 Hydralazine HCl 25 mg PO DAILY 07/15/18 Family Disease History - Family Disease History Family Disease History: Diabetes: Mother, Brother, Sister Review of Systems Findings/Remarks: Full review of systems obtained, as per HPI and otherwise negative Physical Examination Vital Signs: Vital Signs Temperature Pulse Rate 73 07/15/18 09:39 Respiratory Rate 18 07/15/18 09:39 Blood Pressure 164/83 07/15/18 09:39 O2 Sat by Pulse Oximetry (%) 100 07/15/18 09:39 Constitutional: Yes: Well Nourished, No Distress, Calm Eyes: Yes: Conjunctiva Clear, EOM Intact, PERRL HENT: Yes: Atraumatic, Normocephalic Cardiovascular: Yes: Regular Rate and Rhythm, JVD. No: Pulse Irregular, Gallop , Murmur, Rub Respiratory: Yes: Regular, CTA Bilaterally. No: Rales, Rhonchi, Wheezes Gastrointestinal: Yes: Normal Bowel Sounds, Soft. 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 Dr Perry -planning for HD today -will need chronic HD again Code(s): N17.9 - ACUTE KIDNEY FAILURE, UNSPECIFIED; N18.9 - CHRONIC KIDNEY DISEASE, UNSPECIFIED Qualifiers: Acute renal failure type: unspecified Chronic kidney disease stage: unspecified stage Qualified Code(s): N17.9 - Acute kidney failure, unspecified ; N18.9 - Chronic kidney disease, unspecified (2) Pericardial effusion Assessment/Plan: -most likely uremic -even though it is large and patient is symptomatic with hypoxia, he does not have instability -case d/w cardiology who will see in consultation -mainly needs HD to remove fluid and urea -ECHO ordered -if needs intervention, piped buttonhole machine operator interventional radiologist at [phone] Code(s): I31.3 - PERICARDIAL EFFUSION (NONINFLAMMATORY) (3) Kidney transplant recipient Assessment/Plan: -discussed immunosuppression with Dr Perry -decrease tacrolimus to 3mg bid with plan to taper as an outpatient Code(s): Z94.0 - KIDNEY TRANSPLANT STATUS (4) HLD (hyperlipidemia) Assessment/Plan: -continue statin Code(s): E78.5 - HYPERLIPIDEMIA, UNSPECIFIED (5) BPH (benign prostatic hyperplasia) Assessment/Plan: -continue flomax Code(s): N40.0 - BENIGN PROSTATIC HYPERPLASIA WITHOUT LOWER URINRY TRACT SYMP (6) HTN (hypertension) Assessment/Plan: -elevated today, but less concerning than hypotension -continue home regimen -planning for HD today Code(s): I10 - ESSENTIAL (PRIMARY) HYPERTENSION
[2018-07-15] MEDS: ACETAMINOPHEN 325 MG TABLET (FP) PO PRN ×2 (18:37→23:34)
[2018-07-15 18:48] VITALS: BMI 27.1
[2018-07-15] MEDS ORDERED: EPOETIN ALFA 2,000 UNIT/1 ML VIAL IVPUSH ONE (20:45)
[2018-07-15] MEDS: METOPROLOL TARTRATE 50 MG TABLET (FP) PO SCH (23:20)
[2018-07-15] MEDS: hydrALAZINE HCL 25 MG TABLET (FP) PO SCH (23:20)
[2018-07-15] MEDS: ROSUVASTATIN CA 10 MG TABLET (FP) PO SCH (23:20)
[2018-07-15] MEDS: TACROLIMUS ANHYDROUS 1 MG CAPSULE PO SCH (23:20)
[2018-07-15] MEDS ORDERED: TAMSULOSIN HCL 0.4 MG CAP PO ONE (23:28)
[2018-07-16 04:09] LABS: HEP.C VIRUS AB <0.1 s/co ratio (0.0-0.9)
[2018-07-16 07:58] LABS: HEMATOCRIT 24.7 % (35.4-49); HEMOGLOBIN 7.7 GM/dL (11.7-16.9); MCH 27.3 pg (25.7-33.7); MCHC 31.2 g/dl (32.0-35.9); MEAN CELL VOLUME 87.3 fl (80-96); MEAN PLT VOLUME 8.6 fl (7.5-11.1); PLATELET COUNT 107 K/MM3 (134-434); RBC 2.84 M/mm3 (4.00-5.60); RDW 21.5 % (11.9-15.9); WHITE BLOOD COUNT 3.7 K/mm3 (4.0-10.0)
[2018-07-16 08:13] LABS: INR 1.14 (0.83-1.09); PROTHROMBIN TIME (PATIENT) 13.5 SEC (9.7-13.0)
[2018-07-16] MEDS ORDERED: PT OWN MED DRAWER 7, Y5N ONE ×4 (08:20→22:01)
[2018-07-16 08:21] LABS: ALBUMIN 2.8 g/dl (3.4-5.0); ALK PHOS 218 U/L (45-117); ANION GAP 10 MMOL/L (8-16); BILIRUBIN,TOTAL 0.6 mg/dL (0.2-1); BLOOD UREA NITROGEN 50 mg/dL (7-18); CALCIUM 8.4 mg/dL (8.5-10.1); CHLORIDE 105 mmol/L (98-107); CO2 26 mmol/L (21-32); CREATININE 7.3 mg/dL (0.55-1.3); GLUCOSE,RANDOM 104 mg/dL (74-106); MAGNESIUM 1.5 mg/dL (1.8-2.4); PHOSPHOROUS 5.2 mg/dL (2.5-4.9); POTASSIUM 3.6 mmol/L (3.5-5.1); SGOT/AST 19 U/L (15-37); SGPT/ALT 21 U/L (13-61); SODIUM 141 mmol/L (136-145); TOT PROT 5.4 g/dl (6.4-8.2)
[2018-07-16] MEDS ORDERED: TAMSULOSIN HCL 0.4 MG CAP PO SCH ×3 (08:30→20:00)
--- NOTE | 2018-07-16 08:43 | EKG ---
Test Reason : Blood Pressure : / mmHG Vent. Rate : 069 BPM Atrial Rate : 069 BPM P-R Int : 152 ms QRS Dur : 090 ms QT Int : 438 ms P-R-T Axes : 035 032 054 degrees QTc Int : 469 ms NORMAL SINUS RHYTHM T WAVE ABNORMALITY, CONSIDER LATERAL ISCHEMIA ABNORMAL ECG NO PREVIOUS ECGS AVAILABLE Confirmed by HEATHER ROCHA MD ([id number]) on 07/16/2018 8:42:52 AM Referred By: Confirmed By:HEATHER ROCHA MD
[2018-07-16] MEDS: ACETAMINOPHEN 325 MG TABLET (FP) PO PRN ×3 (09:56→20:03)
[2018-07-16] MEDS: ASPIRIN 81 MG CHEWABLE TABLETS PO SCH (09:57)
[2018-07-16] MEDS: hydrALAZINE HCL 25 MG TABLET (FP) PO SCH ×2 (09:57→22:09)
[2018-07-16] MEDS: METOPROLOL TARTRATE 50 MG TABLET (FP) PO SCH ×2 (09:57→22:09)
[2018-07-16] MEDS: CINACALCET HCL 30 MG TAB (FP) PO SCH (09:58)
[2018-07-16] MEDS: TACROLIMUS ANHYDROUS 1 MG CAPSULE PO SCH ×2 (09:58→22:09)
[2018-07-16] MEDS: ALLOPURINOL 300 MG TABLET (FP) PO SCH (09:58)
[2018-07-16] MEDS ORDERED: amLODIPine BESYLATE 10 MG TABLET (FP) PO SCH (10:00)
--- NOTE | 2018-07-16 10:34 | CON.CARD ---
Cardiology Consult (text) - Consultation Consultation Note: cc: sob hpi: 57 m hx htn, hld, renal transplant now failing, here with sob. Renal transplant has been failing recently. He has been noticing sob/shaikh. No cp palps dizzy loc pnd orthopnea. Occ le edema. Admitted for initiation of HD. Had HD yesterday and feeling a little better. CT shows large peric eff so cardio consulted. pmh: per hpi psh: renal transplant social: no tob fam: no premature cad,scd ros: per hpi; no nvd fever gib hematuria dysuria wt loss meds: Home Medications Medication Instructions Recorded Amlodipine Besylate [Norvasc -] 10 mg PO DAILY 12/31/16 Aspirin [ASA -] 81 mg PO DAILY 12/31/16 Cinacalcet HCl [Sensipar] 30 mg PO DAILY 12/31/16 Furosemide [Lasix] 40 mg PO DAILY 12/31/16 Metoprolol Tartrate [Lopressor] 100 mg PO BID 12/31/16 Rosuvastatin Calcium [Crestor] 10 mg PO HS 12/31/16 Tacrolimus [Prograf] 4 mg PO BID 12/31/16 Tamsulosin HCl [Flomax] 0.4 mg PO HS 12/31/16 Allopurinol 300 mg PO DAILY 07/15/18 Hydralazine HCl 25 mg PO DAILY 07/15/18 pe: Vital Signs Period Temp Pulse Resp BP Sys/Carr Pulse Ox Last 24 Hr 97.6 F-98.0 F 61-81 18-20 125-173/62-91 98-100 nad no jvd rrr s1s2 no mrg cta bl nl eff aaox3 no le e/c/c abd nt nd pos bs no jaundice diaphoresis pos dp pt no carotid bruits Laboratory Last Values WBC 3.7 K/mm3 (4.0-10.0) L 07/16/18 06:30 RBC 2.84 M/mm3 (4.00-5.60) L 07/16/18 06:30 Hgb 7.7 GM/dL (11.7-16.9) L 07/16/18 06:30 Hct 24.7 % (35.4-49) L 07/16/18 06:30 MCV 87.3 fl (80-96) 07/16/18 06:30 MCH 27.3 pg (25.7-33.7) 07/16/18 06:30 MCHC 31.2 g/dl (32.0-35.9) L 07/16/18 06:30 RDW 21.5 % (11.9-15.9) H 07/16/18 06:30 Plt Count 107 K/MM3 (134-434) L 07/16/18 06:30 MPV 8.6 fl (7.5-11.1) 07/16/18 06:30 Absolute Neuts (auto) 4.2 K/mm3 (1.5-8.0) 07/15/18 09:20 Neutrophils % 75.0 % (42.8-82.8) 07/15/18 09:20 Lymphocytes % 16.1 % (8-40) 07/15/18 09:20 Monocytes % 7.4 % (3.8-10.2) 07/15/18 09:20 Eosinophils % 1.2 % (0-4.5) 07/15/18 09:20 Basophils % 0.3 % (0-2.0) 07/15/18 09:20 Nucleated RBC % 0 % (0-0) 07/15/18 09:20 Hypochromia 1+ 07/15/18 09:20 Platelet Estimate Decreased 07/15/18 09:20 Polychromasia 1+ 07/15/18 09:20 Poikilocytosis 1+ 07/15/18 09:20 Anisocytosis 0 07/15/18 09:20 Microcytosis 0 07/15/18 09:20 Macrocytosis 0 07/15/18 09:20 Cascade Cells 1+ 07/15/18 09:20 Fragmented RBCs 1+ 07/15/18 09:20 PT with INR 13.50 SEC (9.7-13.0) H 07/16/18 06:30 INR 1.14 (0.83-1.09) H 07/16/18 06:30 Sodium 141 mmol/L (136-145) 07/16/18 06:30 Potassium 3.6 mmol/L (3.5-5.1) 07/16/18 06:30 Chloride 105 mmol/L (98-107) 07/16/18 06:30 Carbon Dioxide 26 mmol/L (21-32) 07/16/18 06:30 Anion Gap 10 MMOL/L (8-16) 07/16/18 06:30 BUN 50 mg/dL (7-18) H 07/16/18 06:30 Creatinine 7.3 mg/dL (0.55-1.3) H 07/16/18 06:30 Creat Clearance w eGFR 7.82 (>60) 07/16/18 06:30 Random Glucose 104 mg/dL (74-106) 07/16/18 06:30 Calcium 8.4 mg/dL (8.5-10.1) L 07/16/18 06:30 Phosphorus 5.2 mg/dL (2.5-4.9) H 07/16/18 06:30 Magnesium 1.5 mg/dL (1.8-2.4) L 07/16/18 06:30 Total Bilirubin 0.6 mg/dL (0.2-1) 07/16/18 06:30 AST 19 U/L (15-37) 07/16/18 06:30 ALT 21 U/L (13-61) 07/16/18 06:30 Alkaline Phosphatase 218 U/L (45-117) H 07/16/18 06:30 Creatine Kinase 306 IU/L (26-308) 07/15/18 09:20 Creatine Kinase Index 1.5 % (0.0-5.0) 07/15/18 09:20 CK-MB (CK-2) 4.6 ng/mL (0.5-3.6) H 07/15/18 09:20 Troponin I 0.04 ng/ml (0.00-0.05) 07/15/18 09:20 B-Natriuretic Peptide 32082.3 pg/ml (5-125) H 07/15/18 09:20 Total Protein 5.4 g/dl (6.4-8.2) L 07/16/18 06:30 Albumin 2.8 g/dl (3.4-5.0) L 07/16/18 06:30 Lipase 238 U/L (73-393) 07/15/18 09:20 Hepatitis A IgM Ab Negative (Negative) 07/15/18 08:35 Hep Bs Antigen Negative (Negative) 07/15/18 08:35 Hep B Core IgM Ab Negative (Negative) 01/12/19 08:35 Hepatitis C Antibody <0.1 s/co ratio (0.0-0.9) 07/15/18 08:35 Blood Type O POSITIVE 07/15/18 10:28 Antibody Screen Negative 07/15/18 10:28 cta chest: no aortic diss/aneurysm, bl pleural effs, large peric eff ecg: sr, nl intervals, minimal lat twis, no st changes tele: sr, artifact a/p: 57 m hx htn, hld, renal transplant now failing, here with sob. sob, esrd, [place]: -pt s/p renal transplant that has been failing and now presents with vol overload-->had first session HD here and feeling a little better. -cont HD per renal -check echo -no signs acs htn: -cont home meds hld: -cont statin pericardial effusion: -seen on CT chest here -no signs tamponade -likely due to esrd/vol overload, should improve with HD -check echo
--- NOTE | 2018-07-16 12:58 | PN ---
Progress Note, Physician Chief Complaint: Mr Mcdermott says he is feeling a little better today, his breathing is slightly improved. He still has RIVERA and orthopnea. Denies cp or n/v. - Current Medication List Current Medications: Active Medications Acetaminophen (Tylenol -) 650 mg PO Q4H PRN PRN Reason: PAIN LEVEL 1-5 Last Admin: 07/16/18 09:56 Dose: 650 mg Allopurinol (Zyloprim -) 300 mg PO DAILY [facility] Last Admin: 07/16/18 09:58 Dose: 300 mg Amlodipine Besylate (Norvasc -) 10 mg PO DAILY [facility] Last Admin: 07/16/18 09:58 Dose: 10 mg Aspirin (Asa -) 81 mg PO DAILY [facility] Last Admin: 07/16/18 09:57 Dose: 81 mg Cinacalcet (Sensipar -) 30 mg PO DAILY [facility] Last Admin: 07/16/18 09:58 Dose: 30 mg Hydralazine HCl (Apresoline -) 25 mg PO BID [facility] Last Admin: 07/16/18 09:57 Dose: 25 mg Metoprolol Tartrate (Lopressor -) 100 mg PO BID [facility] Last Admin: 07/16/18 09:57 Dose: 100 mg Ondansetron HCl (Zofran Injection) 4 mg IVPUSH Q6H PRN PRN Reason: NAUSEA Rosuvastatin Calcium (Crestor -) 10 mg PO HS [facility] Last Admin: 07/15/18 23:20 Dose: 10 mg Tacrolimus (Prograf) 3 mg PO BID [facility] Last Admin: 07/16/18 09:58 Dose: 3 mg Tamsulosin HCl (Flomax -) 0.4 mg PO DAILY@2200 [facility] Objective Vital Signs: Vital Signs Temperature 36.8 C 07/16/18 10:00 Pulse Rate 69 07/16/18 10:00 Respiratory Rate 18 07/16/18 10:00 Blood Pressure 101/60 07/16/18 10:00 O2 Sat by Pulse Oximetry (%) 99 07/16/18 10:00 Constitutional: Yes: Well Nourished, No Distress, Calm Cardiovascular: Yes: Regular Rate and Rhythm. No: Gallop, Murmur, Rub Respiratory: Yes: Regular, On Nasal O2, Rhonchi. No: CTA Bilaterally, Rales, Wheezes Gastrointestinal: Yes: Normal Bowel Sounds, Soft. No: Distention, Tenderness Extremities: Yes: WNL Edema: Yes Edema: LLE: Trace, RLE: Trace Labs: CBC, BMP 07/16/18 06:30 07/16/18 06:30 INR, PTT INR 1.14 (0.83-1.09) H 07/16/18 06:30 Problem List - Problems (1) Acute on chronic renal failure Code(s): N17.9 - ACUTE KIDNEY FAILURE, UNSPECIFIED; N18.9 - CHRONIC KIDNEY DISEASE, UNSPECIFIED Qualifiers: Acute renal failure type: unspecified Chronic kidney disease stage: unspecified stage Qualified Code(s): N17.9 - Acute kidney failure, unspecified ; N18.9 - Chronic kidney disease, unspecified (2) Pericardial effusion Code(s): I31.3 - PERICARDIAL EFFUSION (NONINFLAMMATORY) (3) Kidney transplant recipient Code(s): Z94.0 - KIDNEY TRANSPLANT STATUS (4) HLD (hyperlipidemia) Code(s): E78.5 - HYPERLIPIDEMIA, UNSPECIFIED (5) BPH (benign prostatic hyperplasia) Code(s): N40.0 - BENIGN PROSTATIC HYPERPLASIA WITHOUT LOWER URINRY TRACT SYMP (6) HTN (hypertension) Code(s): I10 - ESSENTIAL (PRIMARY) HYPERTENSION Assessment/Plan (1) Acute on chronic renal failure Assessment/Plan: -s/p HD -Dr Perry following -HD per Dr ePrry Code(s): N17.9 - ACUTE KIDNEY FAILURE, UNSPECIFIED; N18.9 - CHRONIC KIDNEY DISEASE, UNSPECIFIED Qualifiers: Acute renal failure type: unspecified Chronic kidney disease stage: unspecified stage Qualified Code(s): N17.9 - Acute kidney failure, unspecified ; N18.9 - Chronic kidney disease, unspecified (2) Pericardial effusion Assessment/Plan: -appreciate cardiology assistance -follow up ECHO -continue HD to treat uremia and remove fluid Code(s): I31.3 - PERICARDIAL EFFUSION (NONINFLAMMATORY) (3) Kidney transplant recipient Assessment/Plan: -discussed immunosuppression with Dr Perry -decreased tacrolimus to 3mg bid this admission with plan to taper as an outpatient Code(s): Z94.0 - KIDNEY TRANSPLANT STATUS (4) HLD (hyperlipidemia) Assessment/Plan: -continue statin Code(s): E78.5 - HYPERLIPIDEMIA, UNSPECIFIED (5) BPH (benign prostatic hyperplasia) Assessment/Plan: -continue flomax -change to evening dosing per patient request Code(s): N40.0 - BENIGN PROSTATIC HYPERPLASIA WITHOUT LOWER URINRY TRACT SYMP (6) HTN (hypertension) Assessment/Plan: -improved control s/p HD -may need to decrease antihypertensives Code(s): I10 - ESSENTIAL (PRIMARY) HYPERTENSION
[2018-07-16] MEDS ORDERED: traMADol HCL 50 MG TABLET PO ONE (19:21)
[2018-07-16] MEDS ORDERED: LIDOCAINE 5% TOPICAL PATCH TP ONE (20:15)
[2018-07-16] MEDS: ROSUVASTATIN CA 10 MG TABLET (FP) PO SCH (22:09)
[2018-07-16] MEDS: TAMSULOSIN HCL 0.4 MG CAP PO SCH (22:09)
[2018-07-16] MEDS: LIDOCAINE PATCH REMOVAL MC SCH (22:13)
[2018-07-17 06:29] LABS: BASO % 0.6 % (0-2.0); EOS % 1.8 % (0-4.5); HEMATOCRIT 24.8 % (35.4-49); HEMOGLOBIN 7.7 GM/dL (11.7-16.9); LYMPH % 35.8 % (8-40); MCH 27.2 pg (25.7-33.7); MCHC 31.1 g/dl (32.0-35.9); MEAN CELL VOLUME 87.4 fl (80-96); MEAN PLT VOLUME 8.7 fl (7.5-11.1); MONO % 12.4 % (3.8-10.2); NEUT % 49.4 % (42.8-82.8); PLATELET COUNT 103 K/MM3 (134-434); RBC 2.84 M/mm3 (4.00-5.60); RDW 21.7 % (11.9-15.9); WHITE BLOOD COUNT 3.9 K/mm3 (4.0-10.0)
[2018-07-17 07:09] LABS: ANION GAP 10 MMOL/L (8-16); BLOOD UREA NITROGEN 53 mg/dL (7-18); CHLORIDE 105 mmol/L (98-107); CO2 24 mmol/L (21-32); GLUCOSE,RANDOM 91 mg/dL (74-106); MAGNESIUM 1.6 mg/dL (1.8-2.4); PHOSPHOROUS 5.8 mg/dL (2.5-4.9); POTASSIUM 3.6 mmol/L (3.5-5.1); SODIUM 139 mmol/L (136-145)
[2018-07-17 07:34] LABS: CREATININE 8.4 mg/dL (0.55-1.3)
--- NOTE | 2018-07-17 08:15 | PN ---
Progress Note (short form) - Note Progress Note: RENAL 57 S/P FAILED TXP AFTER MANY YEARS NOW STARTED BACK ON DIALYSIS SAT FEELS BETTER LESS DYSPNEIC BACK PAIN REMAIN NEEDS TO FOLLOW [facility] PHYSIATRY EVAL BP MUCH LOWER DC HYDRALAZINE CONTINUE NORVASC 10 Q HS AND METOPROLOL BID HOLD PRE HD SECOND HD TODAY HIPS 15 3 HR K3 CA2.5 [facility] 2 EPO 20K DC PLANNING NEEDS TO GO TO [facility] [address] CALL FOR QUESTION DR FRANCOIS
[2018-07-17] MEDS ORDERED: PT OWN MED DRAWER 7, Y5N ONE ×7 (10:43→21:03)
[2018-07-17] MEDS ORDERED: EPOETIN ALFA 20,000 UNIT/1 ML VIAL SQ ONE (11:00)
--- NOTE | 2018-07-17 12:15 | PN ---
Progress Note, Physician Chief Complaint: Mr Mcdermott is improved today. Still with orthopnea and RIVERA but feels improved. No cp or n/v. - Current Medication List Current Medications: Active Medications Acetaminophen (Tylenol -) 650 mg PO Q4H PRN PRN Reason: PAIN LEVEL 1-5 Last Admin: 07/16/18 20:03 Dose: 650 mg Allopurinol (Zyloprim -) 300 mg PO DAILY COUNTS INCLUDE 234 BEDS AT THE [facility] Last Admin: 07/16/18 09:58 Dose: 300 mg Amlodipine Besylate (Norvasc -) 10 mg PO [facility] Aspirin (Asa -) 81 mg PO DAILY COUNTS INCLUDE 234 BEDS AT THE [facility] Last Admin: 07/16/18 09:57 Dose: 81 mg Cinacalcet (Sensipar -) 30 mg PO DAILY COUNTS INCLUDE 234 BEDS AT THE [facility] Last Admin: 07/16/18 09:58 Dose: 30 mg Metoprolol Tartrate (Lopressor -) 100 mg PO BID COUNTS INCLUDE 234 BEDS AT THE [facility] Last Admin: 07/16/18 22:09 Dose: 100 mg Miscellaneous (Lidoderm Patch Removal) 1 each MC DAILY@2200 COUNTS INCLUDE 234 BEDS AT THE [facility] Last Admin: 07/16/18 22:13 Dose: Not Given Ondansetron HCl (Zofran Injection) 4 mg IVPUSH Q6H PRN PRN Reason: NAUSEA Rosuvastatin Calcium (Crestor -) 10 mg PO [facility] Last Admin: 07/16/18 22:09 Dose: 10 mg Tacrolimus (Prograf) 3 mg PO BID COUNTS INCLUDE 234 BEDS AT THE [facility] Last Admin: 07/16/18 22:09 Dose: 3 mg Tamsulosin HCl (Flomax -) 0.4 mg PO DAILY@2200 COUNTS INCLUDE 234 BEDS AT THE [facility] Last Admin: 07/16/18 22:09 Dose: 0.4 mg - Objective Vital Signs: Vital Signs Temperature 36.6 C 07/17/18 10:00 Pulse Rate 65 07/17/18 10:10 Respiratory Rate 18 07/17/18 10:10 Blood Pressure 132/82 07/17/18 10:10 O2 Sat by Pulse Oximetry (%) 97 07/17/18 10:00 Constitutional: Yes: Well Nourished, No Distress, Calm Cardiovascular: Yes: Regular Rate and Rhythm. No: Gallop, Murmur, Rub Respiratory: Yes: Regular, CTA Bilaterally. No: Rales, Rhonchi, Wheezes Gastrointestinal: Yes: Normal Bowel Sounds, Soft. No: Distention, Tenderness Extremities: Yes: WNL Edema: No Labs: CBC, BMP 07/17/18 05:00 07/17/18 05:00 INR, PTT INR 1.14 (0.83-1.09) H 07/16/18 06:30 Problem List - Problems (1) Acute on chronic renal failure Code(s): N17.9 - ACUTE KIDNEY FAILURE, UNSPECIFIED; N18.9 - CHRONIC KIDNEY DISEASE, UNSPECIFIED Qualifiers: Acute renal failure type: unspecified Chronic kidney disease stage: unspecified stage Qualified Code(s): N17.9 - Acute kidney failure, unspecified ; N18.9 - Chronic kidney disease, unspecified (2) Pericardial effusion Code(s): I31.3 - PERICARDIAL EFFUSION (NONINFLAMMATORY) (3) Kidney transplant recipient Code(s): Z94.0 - KIDNEY TRANSPLANT STATUS (4) HLD (hyperlipidemia) Code(s): E78.5 - HYPERLIPIDEMIA, UNSPECIFIED (5) BPH (benign prostatic hyperplasia) Code(s): N40.0 - BENIGN PROSTATIC HYPERPLASIA WITHOUT LOWER URINRY TRACT SYMP (6) HTN (hypertension) Code(s): I10 - ESSENTIAL (PRIMARY) HYPERTENSION Assessment/Plan (1) Acute on chronic renal failure Assessment/Plan: -case d/w Dr Perry -HD today -stable for discharge from this standpoint Code(s): N17.9 - ACUTE KIDNEY FAILURE, UNSPECIFIED; N18.9 - CHRONIC KIDNEY DISEASE, UNSPECIFIED Qualifiers: Acute renal failure type: unspecified Chronic kidney disease stage: unspecified stage Qualified Code(s): N17.9 - Acute kidney failure, unspecified ; N18.9 - Chronic kidney disease, unspecified (2) Pericardial effusion Assessment/Plan: -appreciate cardiology assistance -follow up ECHO -continue HD to treat uremia and remove fluid -will get pre and post to evaluate possible hypoxia Code(s): I31.3 - PERICARDIAL EFFUSION (NONINFLAMMATORY) (3) Kidney transplant recipient Assessment/Plan: -discussed immunosuppression with Dr Perry -decreased tacrolimus to 3mg bid this admission with plan to taper as an outpatient Code(s): Z94.0 - KIDNEY TRANSPLANT STATUS (4) HLD (hyperlipidemia) Assessment/Plan: -continue statin Code(s): E78.5 - HYPERLIPIDEMIA, UNSPECIFIED (5) BPH (benign prostatic hyperplasia) Assessment/Plan: -continue flomax Code(s): N40.0 - BENIGN PROSTATIC HYPERPLASIA WITHOUT LOWER URINRY TRACT SYMP (6) HTN (hypertension) Assessment/Plan: -improved control s/p HD -hydralazine discontinued Code(s): I10 - ESSENTIAL (PRIMARY) HYPERTENSION (7) Back pain -xrays negative -improved with lidocaine patch -add prn flexeril -PT consult Dispo -possible discharge tomorrow
[2018-07-17] MEDS: METOPROLOL TARTRATE 50 MG TABLET (FP) PO SCH ×2 (13:38→21:16)
[2018-07-17] MEDS: TACROLIMUS ANHYDROUS 1 MG CAPSULE PO SCH ×2 (13:38→21:17)
[2018-07-17] MEDS: ALLOPURINOL 300 MG TABLET (FP) PO SCH (13:39)
[2018-07-17] MEDS: CINACALCET HCL 30 MG TAB (FP) PO SCH (13:39)
[2018-07-17] MEDS: ASPIRIN 81 MG CHEWABLE TABLETS PO SCH (13:41)
--- NOTE | 2018-07-17 14:21 | PN ---
Progress Note (short form) - Note Progress Note: Consultation Note: s: sob improving. no chest pain, palps, dizziness, lightheadedness pe: Vital Signs Period Temp Pulse Resp BP Sys/Carr Pulse Ox Last 24 Hr 97.6 F-98.3 F 59-83 1-18 112-148/60-87 95-97 nad no jvd rrr s1s2 no mrg cta bl nl eff aaox3 no le e/c/c abd nt nd pos bs no jaundice diaphoresis pos dp pt no carotid bruits Current Medications Acetaminophen (Tylenol -) 650 mg PO Q4H PRN PRN Reason: PAIN LEVEL 1-5 Last Admin: 07/16/18 20:03 Dose: 650 mg Allopurinol (Zyloprim -) 300 mg PO DAILY [facility] Last Admin: 07/17/18 13:39 Dose: 300 mg Amlodipine Besylate (Norvasc -) 10 mg PO [facility] Aspirin (Asa -) 81 mg PO DAILY [facility] Last Admin: 07/17/18 13:41 Dose: Not Given Cinacalcet (Sensipar -) 30 mg PO DAILY [facility] Last Admin: 07/17/18 13:39 Dose: 30 mg Cyclobenzaprine HCl (Cyclobenzaprine Hcl) 5 mg PO TID PRN PRN Reason: BACK PAIN Metoprolol Tartrate (Lopressor -) 100 mg PO BID [facility] Last Admin: 07/17/18 13:38 Dose: 100 mg Miscellaneous (Lidoderm Patch Removal) 1 each MC DAILY@2200 [facility] Last Admin: 07/16/18 22:13 Dose: Not Given Ondansetron HCl (Zofran Injection) 4 mg IVPUSH Q6H PRN PRN Reason: NAUSEA Rosuvastatin Calcium (Crestor -) 10 mg PO [facility] Last Admin: 07/16/18 22:09 Dose: 10 mg Tacrolimus (Prograf) 3 mg PO BID [facility] Last Admin: 07/17/18 13:38 Dose: 3 mg Tamsulosin HCl (Flomax -) 0.4 mg PO DAILY@2200 [facility] Last Admin: 07/16/18 22:09 Dose: 0.4 mg cta chest: no aortic diss/aneurysm, bl pleural effs, large peric eff ecg: sr, nl intervals, minimal lat twis, no st changes tele: sr, artifact a/p: 57 m hx htn, hld, renal transplant now failing, here with sob. sob, esrd, [place]: -pt s/p renal transplant that has been failing and now presents with vol overload, feeling better after HD -cont HD per renal -echo pending -no signs acs htn: -cont home meds hld: -cont statin pericardial effusion: -seen on CT chest here -no signs tamponade -likely due to esrd/vol overload, should improve with HD -echo pending
--- NOTE | 2018-07-17 15:29 | ECHO ---
Name: SHARLENE RENAE Exam:Adult Echocardiogram Study Date: 07/17/2018 01:55 PM Age: 57 yrs Reason For Study: PERICARDIAL EFFUSION Height: 70 in Weight: 185 lb BSA: 2.0 m2 MMode/2D Measurements & Calculations IVSd: 1.1 cm Ao root diam: 3.5 cm LVIDd: 5.9 cm LA dimension: 5.4 cm LVIDs: 3.8 cm ACS: 1.9 cm LVPWd: 1.2 cm IVSs: 1.3 cm LVPWs: 1.5 cm EDV(Teich): 175.5 ml ESV(Teich): 60.5 ml Doppler Measurements & Calculations MV E max jason: 70.1 cm/sec Ao V2 max: 138.8 cm/sec MV A max jason: 46.8 cm/sec Ao max P.7 mmHg MV E/A: 1.5 Ao V2 mean: 106.8 cm/sec Ao mean P.9 mmHg Ao V2 VTI: 29.3 cm MR max jason: 486.2 cm/sec TR max jason: 268.6 cm/sec MR max P.5 mmHg TR max P.0 mmHg PI end-d jason: 138.5 cm/sec Med Peak E' Jason: 4.1 cm/sec Med E/e': 17.1 Lat Peak E' Jason: 9.9 cm/sec Lat E/e': 7.1 Procedure A complete two-dimensional transthoracic echocardiogram was performed (2D, M-mode, Doppler and color flow Doppler). Technically liimited study. Left Ventricle The left ventricle is normal in size. Left ventricular systolic function is normal. Ejection Fraction = 60- 65%. Diastolic dysfunction, Grade II, consistent with elevated left atrial pressure. Ratio E/E'= 19. No regional wall motion abnormalities noted. Right Ventricle The right ventricle is normal size. The right ventricular systolic function is normal. Atria The left atrium is moderately dilated. Right atrial size is normal. Mitral Valve The mitral valve is normal in structure and function. There is mild mitral regurgitation. Tricuspid Valve The tricuspid valve is normal in structure and function. There is mild tricuspid regurgitation. Pulmo nary artery systolic pressure is at least 37 mmHg assuming RA pressure of 3 mmHg. Aortic Valve The aortic valve is normal in structure and function. No aortic regurgitation is present. Pulmonic Valve The pulmonic valve is not well visualized. Trace to mild pulmonic valvular regurgitation. Great Vessels The aortic root is normal size. Pericardium/Pleura Moderate pericardial effusion (1-2 cm). There are no echocardiographic indications of cardiac tampona de. There is a pleural effusion present. Interpretation Summary Diastolic dysfunction, Grade II, consistent with elevated left atrial pressure. Ratio E/E'= 19 The right ventricular systolic function is normal. The left atrium is moderately dilated. Right atrial size is normal. There is mild mitral regurgitation. There is mild tricuspid regurgitation. Pulmonary artery systolic pressure is at least 37 mmHg assuming RA pressure of 3 mmHg Trace to mild pulmonic valvular regurgitation. Moderate pericardial effusion (1-2 cm) There are no echocardiographic indications of cardiac tamponade. There is a pleural effusion present. Previous study is not available for comparison Neel Go MD 07/17/2018 03:29 PM
[2018-07-17] MEDS: CYCLOBENZAPRINE HCL 5 MG TABLET PO PRN ×2 (16:05→21:19)
[2018-07-17] MEDS: TAMSULOSIN HCL 0.4 MG CAP PO SCH (21:16)
[2018-07-17] MEDS: amLODIPine BESYLATE 10 MG TABLET (FP) PO SCH (21:16)
[2018-07-17] MEDS: ROSUVASTATIN CA 10 MG TABLET (FP) PO SCH (21:17)
[2018-07-17] MEDS: LIDOCAINE PATCH REMOVAL MC SCH (21:20)
[2018-07-18 06:15] LABS: BASO % 0.5 % (0-2.0); EOS % 2.3 % (0-4.5); HEMATOCRIT 26.3 % (35.4-49); HEMOGLOBIN 8.1 GM/dL (11.7-16.9); LYMPH % 29.9 % (8-40); MCH 27.1 pg (25.7-33.7); MCHC 30.7 g/dl (32.0-35.9); MEAN CELL VOLUME 88.1 fl (80-96); MEAN PLT VOLUME 8.5 fl (7.5-11.1); MONO % 13.6 % (3.8-10.2); NEUT % 53.7 % (42.8-82.8); PLATELET COUNT 104 K/MM3 (134-434); RBC 2.98 M/mm3 (4.00-5.60); RDW 21.5 % (11.9-15.9); WHITE BLOOD COUNT 3.6 K/mm3 (4.0-10.0)
[2018-07-18 06:45] LABS: ANION GAP 8 MMOL/L (8-16); BLOOD UREA NITROGEN 30 mg/dL (7-18); CALCIUM 8.2 mg/dL (8.5-10.1); CHLORIDE 103 mmol/L (98-107); CO2 29 mmol/L (21-32); CREATININE 6.5 mg/dL (0.55-1.3); GLUCOSE,RANDOM 82 mg/dL (74-106); MAGNESIUM 1.7 mg/dL (1.8-2.4); PHOSPHOROUS 4.8 mg/dL (2.5-4.9); POTASSIUM 3.4 mmol/L (3.5-5.1); SODIUM 140 mmol/L (136-145)
--- NOTE | 2018-07-18 09:17 | PN ---
Progress Note (short form) - Note Progress Note: Consultation Note: s: sob with exertion improving, still complains of orthopnea. no chest pain, palps, dizziness, lightheadedness pe: Vital Signs Period Temp Pulse Resp BP Sys/Carr Pulse Ox Last 24 Hr 97.7 F-98.3 F 59-83 18-18 125-148/60-87 95-97 nad no jvd rrr s1s2 no mrg cta bl nl eff aaox3 no le e/c/c abd nt nd pos bs no jaundice diaphoresis pos dp pt no carotid bruits Current Medications Acetaminophen (Tylenol -) 650 mg PO Q4H PRN PRN Reason: PAIN LEVEL 1-5 Last Admin: 07/16/18 20:03 Dose: 650 mg Allopurinol (Zyloprim -) 300 mg PO DAILY [facility] Last Admin: 07/17/18 13:39 Dose: 300 mg Amlodipine Besylate (Norvasc -) 10 mg PO [facility] Last Admin: 07/17/18 21:16 Dose: 10 mg Aspirin (Asa -) 81 mg PO DAILY [facility] Last Admin: 07/17/18 13:41 Dose: Not Given Cinacalcet (Sensipar -) 30 mg PO DAILY [facility] Last Admin: 07/17/18 13:39 Dose: 30 mg Cyclobenzaprine HCl (Cyclobenzaprine Hcl) 5 mg PO TID PRN PRN Reason: BACK PAIN Last Admin: 07/17/18 21:19 Dose: 5 mg Metoprolol Tartrate (Lopressor -) 100 mg PO BID [facility] Last Admin: 07/17/18 21:16 Dose: 100 mg Miscellaneous (Lidoderm Patch Removal) 1 each MC DAILY@2200 [facility] Last Admin: 07/17/18 21:20 Dose: Not Given Ondansetron HCl (Zofran Injection) 4 mg IVPUSH Q6H PRN PRN Reason: NAUSEA Rosuvastatin Calcium (Crestor -) 10 mg PO [facility] Last Admin: 07/17/18 21:17 Dose: 10 mg Tacrolimus (Prograf) 3 mg PO BID [facility] Last Admin: 07/17/18 21:17 Dose: 3 mg Tamsulosin HCl (Flomax -) 0.4 mg PO DAILY@2200 [facility] Last Admin: 07/17/18 21:16 Dose: 0.4 mg cta chest: no aortic diss/aneurysm, bl pleural effs, large peric eff ecg: sr, nl intervals, minimal lat twis, no st changes echo 07/201819 grade II diastolic dysfunction, LA mod dilated, mild MR, mild TR, PASP at least 37 mmHg, mod pericardial effusion 1-2 cm, no echocardiographic signs of tamponade, pleural effusion present tele: sr, artifact a/p: 57 m hx htn, hld, renal transplant now failing, here with sob. sob, [place]rd, [place]: -pt s/p renal transplant that has been failing and now presents with vol overload, feeling better after HD -cont HD per renal -echo with nl LV function, mod pericardial effusion likely in setting of volume overload -no signs acs pericardial effusion: -seen on CT chest here - moderate pericardial effusion on echo -no signs tamponade -likely due to esrd/vol overload, should improve with HD - repeat echo in one week to assess for improvement htn: -cont home meds hld: -cont statin
[2018-07-18] MEDS ORDERED: PT OWN MED DRAWER 7, Y5N ONE ×2 (10:03→21:26)
[2018-07-18] MEDS: METOPROLOL TARTRATE 50 MG TABLET (FP) PO SCH ×2 (10:29→21:27)
[2018-07-18] MEDS: TACROLIMUS ANHYDROUS 1 MG CAPSULE PO SCH ×2 (10:29→21:28)
[2018-07-18] MEDS: ASPIRIN 81 MG CHEWABLE TABLETS PO SCH (10:29)
[2018-07-18] MEDS: ALLOPURINOL 300 MG TABLET (FP) PO SCH (10:29)
[2018-07-18] MEDS: CINACALCET HCL 30 MG TAB (FP) PO SCH (10:29)
[2018-07-18] MEDS: CYCLOBENZAPRINE HCL 5 MG TABLET PO PRN ×2 (12:40→21:29)
--- NOTE | 2018-07-18 14:59 | PN ---
Teaching Attending Note Name of Resident: Sofia Franklin ATTENDING PHYSICIAN STATEMENT I saw and evaluated the patient. I reviewed the resident's note and discussed the case with the resident. I agree with the resident's findings and plan as documented. SUBJECTIVE: Mr Mcdermott says the pain is controlled with flexeril. Denies cp, sob , n/v. Walked with PT without difficulty. OBJECTIVE: Last Vital Signs Temp Pulse Resp BP Pulse Ox 36.8 C 64 18 125/80 96 07/18/18 08:45 07/18/18 08:45 07/18/18 08:45 07/18/18 08:45 07/18/18 11:01 Gen: nad Pulm: margarita carpenter CV: rrr w/o w/r/r Abd: +bs, s/nt/nd Ext: no c/c/e CBC, BMP 07/18/18 06:00 07/18/18 06:00 ASSESSMENT AND PLAN: (1) Acute on chronic renal failure Assessment/Plan: -case d/w Dr Perry -stable for discharge once outpatient HD set up -case d/w social work, awaiting hepatitis panel to establish outpatient HD Code(s): N17.9 - ACUTE KIDNEY FAILURE, UNSPECIFIED; N18.9 - CHRONIC KIDNEY DISEASE, UNSPECIFIED Qualifiers: Acute renal failure type: unspecified Chronic kidney disease stage: unspecified stage Qualified Code(s): N17.9 - Acute kidney failure, unspecified ; N18.9 - Chronic kidney disease, unspecified (2) Pericardial effusion Assessment/Plan: -appreciate cardiology assistance -ECHO reviewed -continue HD, expect resolution Code(s): I31.3 - PERICARDIAL EFFUSION (NONINFLAMMATORY) (3) Kidney transplant recipient Assessment/Plan: -discussed immunosuppression with Dr Perry -decreased tacrolimus to 3mg bid this admission with plan to taper as an outpatient Code(s): Z94.0 - KIDNEY TRANSPLANT STATUS (4) HLD (hyperlipidemia) Assessment/Plan: -continue statin Code(s): E78.5 - HYPERLIPIDEMIA, UNSPECIFIED (5) BPH (benign prostatic hyperplasia) Assessment/Plan: -continue flomax Code(s): N40.0 - BENIGN PROSTATIC HYPERPLASIA WITHOUT LOWER URINRY TRACT SYMP (6) HTN (hypertension) Assessment/Plan: -improved control s/p HD -hydralazine discontinued Code(s): I10 - ESSENTIAL (PRIMARY) HYPERTENSION (7) Back pain -xrays negative -continue pm lidocaine and flexeril tid prn -did well with PT Problem List - Problems (1) Acute on chronic renal failure Code(s): N17.9 - ACUTE KIDNEY FAILURE, UNSPECIFIED; N18.9 - CHRONIC KIDNEY DISEASE, UNSPECIFIED Qualifiers: Acute renal failure type: unspecified Chronic kidney disease stage: unspecified stage Qualified Code(s): N17.9 - Acute kidney failure, unspecified ; N18.9 - Chronic kidney disease, unspecified (2) Pericardial effusion Code(s): I31.3 - PERICARDIAL EFFUSION (NONINFLAMMATORY) (3) Kidney transplant recipient Code(s): Z94.0 - KIDNEY TRANSPLANT STATUS (4) HLD (hyperlipidemia) Code(s): E78.5 - HYPERLIPIDEMIA, UNSPECIFIED (5) BPH (benign prostatic hyperplasia) Code(s): N40.0 - BENIGN PROSTATIC HYPERPLASIA WITHOUT LOWER URINRY TRACT SYMP (6) HTN (hypertension) Code(s): I10 - ESSENTIAL (PRIMARY) HYPERTENSION
--- NOTE | 2018-07-18 17:24 | PN ---
Physical Exam: SUBJECTIVE: Patient seen and examined by me at bedside Offers no complaints. Patient was walking around without difficulty Walked 150ft with PT today Otherwise, denies any fever, chills, nausea, vomiting, abdominal pain, chest pain, palpitations, shortness of breath, diarrhea. OBJECTIVE: Vital Signs Period Temp Pulse Resp BP Sys/Carr Pulse Ox Last 24 Hr 97.7 F-98.3 F 62-67 18-18 125-133/67-80 96-96 GENERAL: The patient is awake, alert, and fully oriented, in no acute distress. EYES: Sclera anicteric, conjunctiva clear. No ptosis. ENT: Moist mucous membranes. LUNGS: Breath sounds equal, clear to auscultation bilaterally, no wheezes, no crackles, no accessory muscle use. HEART: Regular rate and rhythm, S1, S2 without murmur, rub or gallop. ABDOMEN: Soft, nontender, nondistended, normoactive bowel sounds. EXTREMITIES: No edema. (+) Left arm fistula with aneurysm Laboratory Results - last 24 hr 07/17/18 07/18/18 07/18/18 08:00 06:00 06:00 WBC 3.6 L RBC 2.98 L Hgb 8.1 L Hct 26.3 L MCV 88.1 MCH 27.1 MCHC 30.7 L RDW 21.5 H Plt Count 104 L MPV 8.5 Absolute Neuts (auto) 1.9 Neutrophils % 53.7 Lymphocytes % 29.9 Monocytes % 13.6 H Eosinophils % 2.3 Basophils % 0.5 Nucleated RBC % 0 Sodium 140 Potassium 3.4 L Chloride 103 Carbon Dioxide 29 Anion Gap 8 BUN 30 H Creatinine 6.5 H Creat Clearance w eGFR 8.95 Random Glucose 82 Calcium 8.2 L Phosphorus 4.8 Magnesium 1.7 L Transferrin 145 L Active Medications Generic Name Dose Route Start Last Admin Trade Name Freq PRN Reason Stop Dose Admin Acetaminophen 650 mg 07/15/18 12:07 07/16/18 20:03 Tylenol - PO 650 mg Q4H PRN Administration PAIN LEVEL 1-5 Allopurinol 300 mg 07/16/18 10:00 07/18/18 10:29 Zyloprim - PO 300 mg DAILY [facility] Administration Amlodipine Besylate 10 mg 07/17/18 22:00 07/17/18 21:16 Norvasc - PO 10 mg HS [facility] Administration Aspirin 81 mg 07/16/18 10:00 07/18/18 10:29 Asa - PO 81 mg DAILY [facility] Administration Cinacalcet 30 mg 07/16/18 10:00 07/18/18 10:29 Sensipar - PO 30 mg DAILY [facility] Administration Cyclobenzaprine HCl 5 mg 07/17/18 12:10 07/18/18 12:40 Cyclobenzaprine Hcl PO 5 mg TID PRN Administration BACK PAIN Metoprolol Tartrate 100 mg 07/15/18 22:00 07/18/18 10:29 Lopressor - PO 100 mg BID [facility] Administration Miscellaneous 1 each 07/16/18 22:00 07/17/18 21:20 Lidoderm Patch Removal MC Not Given DAILY@2200 RE[facility] Ondansetron HCl 4 mg 07/15/18 12:07 Zofran Injection IVPUSH Q6H PRN NAUSEA Rosuvastatin Calcium 10 mg 07/15/18 22:00 07/17/18 21:17 Crestor - PO 10 mg HS [facility] Administration Tacrolimus 3 mg 07/15/18 22:00 07/18/18 10:29 Prograf PO 3 mg BID [facility] Administration Tamsulosin HCl 0.4 mg 07/16/18 22:00 07/17/18 21:16 Flomax - PO 0.4 mg DAILY@2200 [facility] Administration ASSESSMENT/PLAN: Patient is a 57 year old male with a PMHx of ESRD with failed kidney transplant who presented with shortness of breath and found to have volume overload and started on HD. Patient admitted for further monitoring and management. Acute on Chronic Renal Failure -Patient seen by Dr. Perry, Kidney transplant physician -Patient started on HD and back on the renal transplant lisst -Awaiting established outpatient HD once hepatitis panel returns -Continue to monitor BMP -Conitnue HD -Continue Tacrolimus 3mg BID and will be tapered, according to Dr. Perry. Will call tomorrow Pericardial Effusion -Likely secondary to Uremia with expected resolution on HD HTN -Improved with dialysis -Continue Amlodipine 10mg daily -Continue Metoprolol 100mg BIF -Continue to monitor BP HLD -Continue crestor 10mg HS BPH -Continue Flomax Back Pain -X-rays negative -Was giveb Lidocaine and Flexeril TID PRN with improvement -Continue PT F/E/N -No IV fluids -Electrolytes wnl -Renal DIET Prophylaxis -SCD's for DVT -No GI required Disposition -Full code -Awaiting hepatitis panel for HD placement. Visit type - Emergency Visit Emergency Visit: Yes ED Registration Date: 07/15/18 Care time: The patient presented to the Emergency Department on the above date and was hospitalized for further evaluation of their emergent condition. - New Patient This patient is new to me today: Yes Date on this admission: 07/18/18 - Critical Care Critical Care patient: No
[2018-07-18] MEDS: TAMSULOSIN HCL 0.4 MG CAP PO SCH (21:27)
[2018-07-18] MEDS: amLODIPine BESYLATE 10 MG TABLET (FP) PO SCH (21:28)
[2018-07-18] MEDS: ROSUVASTATIN CA 10 MG TABLET (FP) PO SCH (21:28)
[2018-07-18] MEDS: LIDOCAINE PATCH REMOVAL MC SCH (21:41)
[2018-07-19 06:38] LABS: BASO % 0.5 % (0-2.0); EOS % 2.4 % (0-4.5); HEMATOCRIT 26.2 % (35.4-49); HEMOGLOBIN 8.6 GM/dL (11.7-16.9); LYMPH % 28.2 % (8-40); MCHC 32.7 g/dl (32.0-35.9); MEAN CELL VOLUME 88.6 fl (80-96); MEAN PLT VOLUME 8.8 fl (7.5-11.1); MONO % 12.5 % (3.8-10.2); NEUT % 56.4 % (42.8-82.8); PLATELET COUNT 122 K/MM3 (134-434); RBC 2.96 M/mm3 (4.00-5.60); RDW 20.7 % (11.9-15.9); WHITE BLOOD COUNT 4.3 K/mm3 (4.0-10.0)
[2018-07-19 07:05] LABS: ANION GAP 6 MMOL/L (8-16); BLOOD UREA NITROGEN 34 mg/dL (7-18); CALCIUM 8.1 mg/dL (8.5-10.1); CHLORIDE 104 mmol/L (98-107); CO2 28 mmol/L (21-32); GLUCOSE,RANDOM 97 mg/dL (74-106); MAGNESIUM 1.8 mg/dL (1.8-2.4); PHOSPHOROUS 4.5 mg/dL (2.5-4.9); POTASSIUM 3.5 mmol/L (3.5-5.1); SODIUM 138 mmol/L (136-145)
[2018-07-19 07:08] LABS: CREATININE 7.9 mg/dL (0.55-1.3)
--- NOTE | 2018-07-19 08:33 | PN ---
Physical Exam: SUBJECTIVE: Patient seen and examined by me at bedside. No acute events overnight Patient offers no complaints Awaiting hepatitis panel before discharge and HD placement Denies any fever, chills, nausea, vomiting, abdominal pain, chest pain, palpitations, OBJECTIVE: Vital Signs Period Temp Pulse Resp BP Sys/Carr Pulse Ox Last 24 Hr 97.7 F-98.3 F 63-70 16-19 120-131/64-80 96-97 GENERAL: The patient is awake, alert, and fully oriented, in no acute distress. EYES: Sclera anicteric, conjunctiva clear. No ptosis. ENT: Moist mucous membranes. LUNGS: Breath sounds equal, clear to auscultation bilaterally, no wheezes, no crackles, no accessory muscle use. HEART: Regular rate and rhythm, S1, S2 without murmur, rub or gallop. ABDOMEN: Soft, nontender, nondistended, normoactive bowel sounds. EXTREMITIES: No edema. (+) Left arm fistula with good palpable thrill and (+) aneurysm Laboratory Results - last 24 hr 07/18/18 07/19/18 07/19/18 06:00 06:00 06:00 WBC 4.3 RBC 2.96 L Hgb 8.6 L Hct 26.2 L MCV 88.6 MCH 29.0 MCHC 32.7 RDW 20.7 H Plt Count 122 L MPV 8.8 Absolute Neuts (auto) 2.4 Neutrophils % 56.4 Lymphocytes % 28.2 Monocytes % 12.5 H Eosinophils % 2.4 Basophils % 0.5 Nucleated RBC % 0 Sodium 138 Potassium 3.5 Chloride 104 Carbon Dioxide 28 Anion Gap 6 L BUN 34 H Creatinine 7.9 H* Creat Clearance w eGFR 7.14 Random Glucose 97 Calcium 8.1 L Phosphorus 4.5 Magnesium 1.8 Iron 32 L Active Medications Generic Name Dose Route Start Last Admin Trade Name Freq PRN Reason Stop Dose Admin Acetaminophen 650 mg 07/15/18 12:07 07/16/18 20:03 Tylenol - PO 650 mg Q4H PRN Administration PAIN LEVEL 1-5 Allopurinol 300 mg 07/16/18 10:00 07/18/18 10:29 Zyloprim - PO 300 mg DAILY RE[facility] Administration Amlodipine Besylate 10 mg 07/17/18 22:00 07/18/18 21:28 Norvasc - PO 10 mg HS RENA Administration Aspirin 81 mg 07/16/18 10:00 07/18/18 10:29 Asa - PO 81 mg DAILY [facility] Administration Cinacalcet 30 mg 07/16/18 10:00 07/18/18 10:29 Sensipar - PO 30 mg DAILY [facility] Administration Cyclobenzaprine HCl 5 mg 07/17/18 12:10 07/18/18 21:29 Cyclobenzaprine Hcl PO 5 mg TID PRN Administration BACK PAIN Metoprolol Tartrate 100 mg 07/15/18 22:00 07/18/18 21:27 Lopressor - PO 100 mg BID [facility] Administration Miscellaneous 1 each 07/16/18 22:00 07/18/18 21:41 Lidoderm Patch Removal MC Not Given DAILY@2200 [facility] Ondansetron HCl 4 mg 07/15/18 12:07 Zofran Injection IVPUSH Q6H PRN NAUSEA Rosuvastatin Calcium 10 mg 07/15/18 22:00 07/18/18 21:28 Crestor - PO 10 mg HS [facility] Administration Tacrolimus 3 mg 07/15/18 22:00 07/18/18 21:28 Prograf PO 3 mg BID RE[facility] Administration Tamsulosin HCl 0.4 mg 07/16/18 22:00 07/18/18 21:27 Flomax - PO 0.4 mg DAILY@2200 [facility] Administration ASSESSMENT/PLAN: Patient is a 57 year old male with a PMHx of ESRD with failed kidney transplant who presented with shortness of breath and found to have volume overload and started on HD. Patient admitted for further monitoring and management. Acute on Chronic Renal Failure -Patient seen by Dr. Perry, Kidney transplant physician -Patient started on HD and back on the renal transplant list -Awaiting established outpatient HD once hepatitis panel returns. Still pending -Continue to monitor BMP -Conitnue HD -Continue Tacrolimus 3mg BID and will be tapered, according to Dr. Perry. Will call today for further details Pericardial Effusion -Likely secondary to Uremia with expected resolution on HD HTN -Improved with dialysis -Continue Amlodipine 10mg daily -Continue Metoprolol 100mg BIF -Continue to monitor BP HLD -Continue crestor 10mg HS BPH -Continue Flomax Back Pain -X-rays negative -Was given Lidocaine and Flexiril TID PRN with improvement -Continue PT F/E/N -No IV fluids -Electrolytes wnl -Renal DIET Prophylaxis -SCD's for DVT -No GI required Disposition -Full code -Awaiting hepatitis panel for HD placement. Sofia Franklin [id number]
--- NOTE | 2018-07-19 08:43 | PN ---
Progress Note (short form) - Note Progress Note: RENAL 57 S/P FAILED TXP AFTER MANY YEARS NOW STARTED BACK ON DIALYSIS SAT FEELS BACK PAIN BETTER XRAYS NORMAL [id number] CHEST CLEAR [id number] ABD SOFT EXT NO EDEMA LEFT ARM AVF BP GREAT OFF HYDRALAZINE CONTINUE NORVASC 10 Q HS AND METOPROLOL BID THIRD HD TODAY HIPS 15 3 HR K3 CA2.5 [facility] 2 EPO 10K DC TODAY NEEDS TO GO TO [facility] [address] [phone] FAX [phone] ONCE HEP PANEL BACK FAX TO [facility] WILL START THERE TUESDAY CALL FOR QUESTION DR FRANCOIS
[2018-07-19] MEDS ORDERED: EPOETIN ALFA 10,000 UNIT/1 ML VIAL SQ ONE (08:44)
--- NOTE | 2018-07-19 09:17 | PN ---
Progress Note (short form) - Note Progress Note: Consultation Note: s: no sob with exertion, orthopnea is improving. no chest pain, palps, dizziness , lightheadedness pe: Vital Signs Period Temp Pulse Resp BP Sys/Carr Pulse Ox Last 24 Hr 97.7 F-98.3 F 63-70 16-19 120-132/64-70 96-97 nad no jvd rrr s1s2 no mrg cta bl nl eff aaox3 no le e/c/c abd nt nd pos bs no jaundice diaphoresis pos dp pt no carotid bruits Current Medications Acetaminophen (Tylenol -) 650 mg PO Q4H PRN PRN Reason: PAIN LEVEL 1-5 Last Admin: 07/16/18 20:03 Dose: 650 mg Allopurinol (Zyloprim -) 300 mg PO DAILY [facility] Last Admin: 07/18/18 10:29 Dose: 300 mg Amlodipine Besylate (Norvasc -) 10 mg PO [facility] Last Admin: 07/18/18 21:28 Dose: 10 mg Aspirin (Asa -) 81 mg PO DAILY [facility] Last Admin: 07/18/18 10:29 Dose: 81 mg Cinacalcet (Sensipar -) 30 mg PO DAILY [facility] Last Admin: 07/18/18 10:29 Dose: 30 mg Cyclobenzaprine HCl (Cyclobenzaprine Hcl) 5 mg PO TID PRN PRN Reason: BACK PAIN Last Admin: 07/18/18 21:29 Dose: 5 mg Epoetin Arnulfo (Epogen -) 10,000 unit SQ ONCE ONE Stop: 07/19/18 08:45 Metoprolol Tartrate (Lopressor -) 100 mg PO BID [facility] Last Admin: 07/18/18 21:27 Dose: 100 mg Miscellaneous (Lidoderm Patch Removal) 1 each MC DAILY@2200 [facility] Last Admin: 07/18/18 21:41 Dose: Not Given Ondansetron HCl (Zofran Injection) 4 mg IVPUSH Q6H PRN PRN Reason: NAUSEA Rosuvastatin Calcium (Crestor -) 10 mg PO HS [facility] Last Admin: 07/18/18 21:28 Dose: 10 mg Tacrolimus (Prograf) 3 mg PO BID [facility] Last Admin: 07/18/18 21:28 Dose: 3 mg Tamsulosin HCl (Flomax -) 0.4 mg PO DAILY@2200 [facility] Last Admin: 07/18/18 21:27 Dose: 0.4 mg cta chest: no aortic diss/aneurysm, bl pleural effs, large peric eff ecg: sr, nl intervals, minimal lat twis, no st changes echo 07/201819 grade II diastolic dysfunction, LA mod dilated, mild MR, mild TR, PASP at least 37 mmHg, mod pericardial effusion 1-2 cm, no echocardiographic signs of tamponade, pleural effusion present tele: sr, artifact a/p: 57 m hx htn, hld, renal transplant now failing, here with sob. sob, esrd, [place]: -pt s/p renal transplant that has been failing and now presents with vol overload, feeling better after HD -cont HD per renal -echo with nl LV function, mod pericardial effusion likely in setting of volume overload -no signs acs pericardial effusion: -seen on CT chest here - moderate pericardial effusion on echo -no signs tamponade -likely due to esrd/vol overload, should improve with HD -follow up with repeat echo in one week to assess for improvement in effusion - stable for discharge from cardiac perspective htn: -cont home meds hld: -cont statin
[2018-07-19] MEDS ORDERED: PT OWN MED DRAWER 7, Y5N ONE ×2 (10:38→11:42)
[2018-07-19] MEDS: TACROLIMUS ANHYDROUS 1 MG CAPSULE PO SCH (10:41)
[2018-07-19] MEDS: ALLOPURINOL 300 MG TABLET (FP) PO SCH (10:41)
[2018-07-19] MEDS: ASPIRIN 81 MG CHEWABLE TABLETS PO SCH (10:41)
[2018-07-19] MEDS: METOPROLOL TARTRATE 50 MG TABLET (FP) PO SCH (10:41)
[2018-07-19] MEDS: CINACALCET HCL 30 MG TAB (FP) PO SCH (10:42)
[2018-07-19 10:44] LABS: ANISOCYTOSIS 1+; MACROCYTOSIS 1+; OVALOCYTE 1+; PLATELET ESTIMATE DECREASED
[2018-07-19] MEDS ORDERED: CYCLOBENZAPRINE HCL 10 MG TABLET (FP) PO PRN (10:52)
--- NOTE | 2018-07-19 10:54 | PN ---
Teaching Attending Note Name of Resident: Sofia Franklin ATTENDING PHYSICIAN STATEMENT I saw and evaluated the patient. I reviewed the resident's note and discussed the case with the resident. I agree with the resident's findings and plan as documented with exceptions below. SUBJECTIVE: Patient seen and examined. Breathing improved, no new complaints. Currently denies back pain. OBJECTIVE: Vital Signs Period Temp Pulse Resp BP Sys/Carr Pulse Ox Last 24 Hr 97.7 F-98.3 F 63-70 16-19 120-132/64-70 96-97 Intake & Output 07/16/18 07/17/18 07/18/18 07/19/18 23:59 23:59 23:59 23:59 Intake Total 100 520 100 Output Total 200 Balance -200 100 520 100 Weight 184 lb 12.8 oz 182 lb 4.8 oz 184 lb 2 oz 186 lb 9.6 oz General: sitting in chair in no acute distress Chest: few basilar rales, good air entry, no wheezing Abdomen;Soft, NT Extremity: left AV fistula aneurysm, palpable thrill, no swelling, erythema or tenderness, positive pulses Trace LE edema noted Home Medications Medication Instructions Recorded Amlodipine Besylate [Norvasc -] 10 mg PO DAILY 12/31/16 Aspirin [ASA -] 81 mg PO DAILY 12/31/16 Cinacalcet HCl [Sensipar] 30 mg PO DAILY 12/31/16 Metoprolol Tartrate [Lopressor] 100 mg PO BID 12/31/16 Rosuvastatin Calcium [Crestor] 10 mg PO HS 12/31/16 Tamsulosin HCl [Flomax] 0.4 mg PO HS 12/31/16 Allopurinol 300 mg PO DAILY 07/15/18 Cyclobenzaprine HCl 10 mg PO TID PRN #10 tablet 07/19/18 Tacrolimus Anhydrous [Prograf] 3 mg PO BID #20 capsule 07/19/18 Laboratory Results - last 24 hr 07/18/18 07/19/18 07/19/18 06:00 06:00 06:00 WBC 4.3 RBC 2.96 L Hgb 8.6 L Hct 26.2 L MCV 88.6 MCH 29.0 MCHC 32.7 RDW 20.7 H Plt Count 122 L MPV 8.8 Absolute Neuts (auto) 2.4 Neutrophils % 56.4 Lymphocytes % 28.2 Monocytes % 12.5 H Eosinophils % 2.4 Basophils % 0.5 Nucleated RBC % 0 Sodium 138 Potassium 3.5 Chloride 104 Carbon Dioxide 28 Anion Gap 6 L BUN 34 H Creatinine 7.9 H* Creat Clearance w eGFR 7.14 Random Glucose 97 Calcium 8.1 L Phosphorus 4.5 Magnesium 1.8 Iron 32 L ASSESSMENT AND PLAN: 57 yom with PMHx of renal transplant, admitted with dyspnea/Pericardial effusion , resumed on HD. -ESRD, s/p failed renal transplant, back on HD this admission -Pericardial effusion, suspect from volume overload from above -HTN -Gout -BPH -Low back pain PLan: Improved, outpatient HD arranged. BP medications modified, discussed with patient. Cardiology input appreciated. Repeat echo outpatient after few sessions of HD to address improvement. Metoprolol/amlodipine at current doses. Off hydralazine/lasix. Tacrolimus decreased. D/c home today after HD, plan including outpatient follow up and medication changes discussed with patient in detail, all questions answered.
[2018-07-19 13:16] LABS: HBSAG SCREEN Negative (Negative); HEP A AB, IGM Negative (Negative); HEP B CORE AB, TOT Negative (Negative)
--- NOTE | 2018-07-19 14:23 | DS ---
Physical Exam: SUBJECTIVE: Patient seen and examined by me at bedside. No acute events overnight Patient offers no complaints Awaiting hepatitis panel before discharge and HD placement Denies any fever, chills, nausea, vomiting, abdominal pain, chest pain, palpitations, OBJECTIVE: Vital Signs Period Temp Pulse Resp BP Sys/Carr Pulse Ox Last 24 Hr 97.7 F-98.3 F 63-70 16-19 120-132/64-70 97-97 PHYSICAL EXAM GENERAL: The patient is awake, alert, and fully oriented, in no acute distress. EYES: Sclera anicteric, conjunctiva clear. No ptosis. ENT: Moist mucous membranes. LUNGS: Breath sounds equal, clear to auscultation bilaterally, no wheezes, no crackles, no accessory muscle use. HEART: Regular rate and rhythm, S1, S2 without murmur, rub or gallop. ABDOMEN: Soft, nontender, nondistended, normoactive bowel sounds. EXTREMITIES: No edema. (+) Left arm fistula with good palpable thrill and (+) aneurysm Laboratory Results CBC, BMP 07/19/18 06:00 07/19/18 06:00 07/19/18 06:00 Phosphorus 4.5 Magnesium 1.8 PRE-ADMISSION HOSPITAL COURSE: Patient is a 57 year old male with a PMHx of ESRD, HTN, HLD, BPH who was on HD for 7 years until 2008 when he had a renal transplant. Patient presented to the hospital for worsening shortness of breath on exertion and on rest associated with a non-productive cough and worsening LE swelling. In the ED patient was found to have a creatinine of 9.8 and Coffee Bar Attendant was called to bedside and began urgent with admission to inpatient. HOSPITAL COURSE: Throughout hospitalization, patient was started on a HD, three times a week and was placed back on the transplant list by his docent coordinator. Patient responded well to HD and is now set up at [facility] for HD Mondays, Wednesdays, and Fridays through Dr. Perry. Patient throughout his hospital course was also found to have pericardial effusions, which was likely secondary to Uremia and expected to resolve with ongoing hemodialysis, as per cardiology and nephrology. Patient was given referral to the supervisor concrete stone finishing for follow up in one week for repeat ECHO. Patient had one more session as inpatient and is set to resume Dialysis Tuesday (07/21/18) at [facility]. Patient Date of Admission:07/15/18 Date of Discharge: 07/19/18 Minutes to complete discharge: 45 Discharge Summary Reason For Visit: PERICARDIAL EFFUSION,CHEST PAIN, ACUTE RENAL FAILU Current Active Problems Acute on chronic renal failure (Acute) BPH (benign prostatic hyperplasia) (Acute) Chest pain (Acute) Fluid overload (Acute) HLD (hyperlipidemia) (Acute) HTN (hypertension) (Acute) Kidney transplant recipient (Acute) Pericardial effusion (Acute) Condition: Stable - Instructions Diet, Activity, Other Instructions: RECOMMENDATIONS: -You were seen here for shortness of breath and required to start Hemodialysis again. You were seen by Dr. Perry and started HD for Mondays, Wednesdays, and Fridays. -Your Dialysis center will be in [facility] [address] [place] [address] with your first session there on Tuesday (07/21/18) -You will need to continue with your renal diet. -If you experience worsening shortness of breath, return to the emergency department. FOLLOW UP: -Please follow up with Dr. Perry within a week. Her contact information will be in your discharge packet -Please follow up with your Primary care physician, Dr. Montalvo, within a week. -Please follow up with your supervisor concrete stone finishing Dr. Coleman as you were found to have fluids around your heart. You will need a repeat ECHO by the supervisor concrete stone finishing. Her contact information will be in your discharge packet. MEDICATIONS: -You will now be taking Prograf 3mg twice a day . -You will take Amlodipine 10mg at night only -You may take your Metoprolol 100mg twice a day -Your Hydralazine medication was discontinued. -Your Lasix was discontinued. -Flexeril as needed for back pain, taper as symptoms improved. Please note that this medication can make you dizzy or drowsy. So do not drive or operate heavy machinery while on the same and taper this medication to off over next 3-4 days. -All medications will be sent to your pharmacy. Advise daily weights and home BP monitoring till next doctor visit. Notify your doctor if weight gain > 3lbs in 2 days or SBP (upper BP) persistently > 140 or any reading < 100 or any dizziness noted. Referrals: Ana Wilson MD [Primary Care Provider] - Barbra Coleman MD [Staff Physician] - Karina Perry MD [Staff Physician] - Disposition: HOME - Home Medications Comprehensive Discharge Medication List: Ambulatory Orders Amlodipine Besylate [Norvasc -] 10 mg PO DAILY 12/31/16 Aspirin [ASA -] 81 mg PO DAILY 12/31/16 Cinacalcet HCl [Sensipar] 30 mg PO DAILY 12/31/16 Metoprolol Tartrate [Lopressor] 100 mg PO BID 12/31/16 Rosuvastatin Calcium [Crestor] 10 mg PO HS 12/31/16 Tamsulosin HCl [Flomax] 0.4 mg PO HS 12/31/16 Allopurinol 300 mg PO DAILY 07/15/18 Cyclobenzaprine HCl 5 mg PO TID PRN #10 tablet 07/19/18 Tacrolimus Anhydrous [Prograf] 3 mg PO BID #20 capsule 07/19/18 This patient is new to me today: No Emergency Visit: Yes ED Registration Date: 07/15/18 Care time: The patient presented to the Emergency Department on the above date and was hospitalized for further evaluation of their emergent condition. Critical Care patient: No - Discharge Referral Referred to [facility] No
[2018-07-19 18:22] VITALS: TEMP 97.6
[2018-07-19 18:47] VITALS: PULSE 60
[2018-07-19 18:48] VITALS: BP 135/62
== END 2018-07-19 19:42 | disposition home or self-care (01) | DRG 683 ==
LOC: JER 08:10 → JERBED 11:08 → J4S 18:18
PROVIDERS: ADMIT Internal Medicine; ATTEND Hospitalist
PROC: 5A1D70Z Performance of Urinary Filtration, Intermittent, Less than 6 Hours Per Day (ICD-10-PCS; principal; 2018-07-19)
DX: N17.9 Acute kidney failure, unspecified (principal); I31.3 Pericardial effusion (noninflammatory); I12.0 Hypertensive chronic kidney disease with stage 5 chronic kidney disease or end stage renal disease; E78.5 Hyperlipidemia, unspecified; N40.0 Benign prostatic hyperplasia without lower urinary tract symptoms; R07.9 Chest pain, unspecified; E87.70 Fluid overload, unspecified; N18.6 End stage renal disease; Z99.2 Dependence on renal dialysis; M10.9 Gout, unspecified; M54.5 Low back pain
CPT/HCPCS: 36415; 71045-TC-FY; 71275-TC; 72070-TC-FY; 72100-TC-FY; 74174-TC; 80048; 80053; 80074; 82550; 82553; 82728; 83540; 83690; 83735; 83880; 84100; 84466; 84484; 85025; 85027; 85610; 86704; 86706; 86708; 86850; 86900; 86901; 87340; 93005; 93010; 93306-TC; 94761; 97116-GP; 97161-GP; 99285-25; J0885

== ENCOUNTER 2021-02-21 13:35 | Emergency (ER) | payer BC, OTHER ==
[2021-02-21 13:49] VITALS: BMI 26.9
[2021-02-21] MEDS ORDERED: ACETAMINOPHEN 1000 MG/100 ML VIAL (NON FORMULARY) IVPB ONE (14:21)
[2021-02-21] MEDS ORDERED: ACETAMINOPHEN INJECTION 100 ML IVPB ONE (14:26)
[2021-02-21] MEDS ORDERED: CASIRIVIMAB/IMDEVIMAB 10 ML in SODIUM CHLORIDE 100 ML IVPB ONE (14:52)
[2021-02-21 15:14] LABS: BASO % 0.5 % (0-2.0); EOS % 0.8 % (0-4.5); HEMATOCRIT 35.7 % (35.4-49); HEMOGLOBIN 12.3 GM/dL (11.7-16.9); LYMPH % 11.8 % (8-40); MCH 33.8 pg (25.7-33.7); MCHC 34.4 g/dl (32.0-35.9); MEAN CELL VOLUME 98.2 fl (80-96); MEAN PLT VOLUME 8.3 fl (7.5-11.1); MONO % 13.1 % (3.8-10.2); NEUT % 73.8 % (42.8-82.8); PLATELET COUNT 114 10^3/uL (134-434); RBC 3.63 M/mm3 (4.00-5.60); RDW 14.8 % (11.9-15.9); WHITE BLOOD COUNT 4.9 K/mm3 (4.0-10.0)
[2021-02-21 15:31] LABS: CHLORIDE 94 mmol/L (98-107); SODIUM 133 mmol/L (136-145)
[2021-02-21 15:33] LABS: ANION GAP 10 MMOL/L (8-16); BLOOD UREA NITROGEN 34.8 mg/dL (7-18); CALCIUM 9.8 mg/dL (8.5-10.1); CO2 29 mmol/L (21-32); GLUCOSE,RANDOM 144 mg/dL (74-106)
[2021-02-21 15:36] LABS: SGOT/AST 24 U/L (15-37); SGPT/ALT 27 U/L (13-61)
[2021-02-21 15:38] LABS: BILIRUBIN,TOTAL 0.8 mg/dL (0.2-1); TOT PROT 8.4 g/dl (6.4-8.2)
[2021-02-21 15:39] LABS: ALK PHOS 264 U/L (45-117)
[2021-02-21 15:40] LABS: CREATININE 11.8 mg/dL (0.55-1.3)
[2021-02-21 16:40] VITALS: TEMP 99.7
[2021-02-21] MEDS ORDERED: METOCLOPRAMIDE HCL INJECTION 10 MG/2 ML VIAL IVPB ONE (17:51)
[2021-02-21 18:19] VITALS: BP 121/72; PULSE 106
== END 2021-02-21 18:45 | disposition home or self-care (01) ==
LOC: JER 13:35 → JCOVINFU 13:35
PROC: 3E033GC Introduction of Other Therapeutic Substance into Peripheral Vein, Percutaneous Approach (ICD-10-PCS; principal; 2021-02-21)
DX: U07.1 COVID-19 (principal)
CPT/HCPCS: 36415; 80053; 85025; 99284-25; J0131; M0240; Q0240

== ENCOUNTER 2024-03-11 12:56 | Emergency (ER) | payer BC, OTHER ==
[2024-03-11 13:06] VITALS: BP 120/78; PULSE 66; RESP 20; TEMP 97.5; BMI 29.7
== END 2024-03-11 16:50 | disposition home or self-care (01) ==
LOC: JERFT 12:56
DX: M25.522 Pain in left elbow (principal); V49.40XA Driver injured in collision with unspecified motor vehicles in traffic accident, initial encounter; Y92.410 Unspecified street and highway as the place of occurrence of the external cause
CPT/HCPCS: 73070-TC-RT-FY; 99283-25